=== PATIENT | female | born 1960 | race Caucasian/White ===

== ENCOUNTER → 2020-09-27 15:18 | Outpatient (BNVA) | payer MEDICAID, SELFPAY | PROVIDERS: PCP Internal Medicine; Referring Provider Internal Medicine; Visit Provider Student in an Organized Health Care Education/Training Program | DX: M25.50 Pain in unspecified joint (principal) | CPT/HCPCS: 99204 ==

== ENCOUNTER 2020-09-28 07:27 | Outpatient (REF) | payer MEDICAID, SELFPAY ==
--- NOTE | 2020-09-28 07:51 | XR_ITS ---
EXAMINATION: BILATERAL KNEE. CLINICAL INFORMATION: Bilateral knee pain. COMPARISON: None TECHNIQUE: 4 views of each knee. FINDINGS: RIGHT KNEE: There is mild loss of medial and patellofemoral compartment joint space with periarticular spurring. There are no loose bodies, bony erosive changes or suprapatellar joint effusion. There is small anterior patellar enthesophyte. LEFT KNEE: There is mild loss of medial and patellofemoral compartment joint space without bony erosive changes. No acute fracture or dislocation. There is mild periarticular spurring along the patellofemoral and medial compartments. XR/XR knee RT 4V IMPRESSION: Degenerative osteoarthritic changes medial and patellofemoral compartments both knees with periarticular spurring. No joint effusion is seen.
--- NOTE | 2020-09-28 07:51 | XR_ITS ---
EXAMINATION: BILATERAL HAND X-RAY CLINICAL INFORMATION: Pain COMPARISON: Previous x-ray January 2013 TECHNIQUE: 3 views of each hand FINDINGS: Bone alignment is normal. No fracture or dislocation is seen. There is arthritis at the IP joints with joint space narrowing and osteophyte formation. There are also small osteophytes at the second MCP joints. Joint spaces are otherwise normal. There is a soft tissue calcification or ossification adjacent to the distal ulna probably representing triangular fibrocartilage complex calcification. There is a small 2 mm faint radiopaque density in the soft tissues adjacent to the proximal phalanx of the left third finger. This is unchanged. Soft tissues are otherwise unremarkable. XR/XR hand LT min 3V IMPRESSION: Degenerative arthritis at the IP joints.
--- NOTE | 2020-09-28 07:51 | XR_ITS ---
EXAMINATION: BILATERAL HAND X-RAY CLINICAL INFORMATION: Pain COMPARISON: Previous x-ray January 2013 TECHNIQUE: 3 views of each hand FINDINGS: Bone alignment is normal. No fracture or dislocation is seen. There is arthritis at the IP joints with joint space narrowing and osteophyte formation. There are also small osteophytes at the second MCP joints. Joint spaces are otherwise normal. There is a soft tissue calcification or ossification adjacent to the distal ulna probably representing triangular fibrocartilage complex calcification. There is a small 2 mm faint radiopaque density in the soft tissues adjacent to the proximal phalanx of the left third finger. This is unchanged. Soft tissues are otherwise unremarkable. XR/XR hand RT min 3V IMPRESSION: Degenerative arthritis at the IP joints.
--- NOTE | 2020-09-28 07:51 | XR_ITS ---
EXAMINATION: BILATERAL KNEE. CLINICAL INFORMATION: Bilateral knee pain. COMPARISON: None TECHNIQUE: 4 views of each knee. FINDINGS: RIGHT KNEE: There is mild loss of medial and patellofemoral compartment joint space with periarticular spurring. There are no loose bodies, bony erosive changes or suprapatellar joint effusion. There is small anterior patellar enthesophyte. LEFT KNEE: There is mild loss of medial and patellofemoral compartment joint space without bony erosive changes. No acute fracture or dislocation. There is mild periarticular spurring along the patellofemoral and medial compartments. XR/XR knee LT 4V IMPRESSION: Degenerative osteoarthritic changes medial and patellofemoral compartments both knees with periarticular spurring. No joint effusion is seen.
[2020-09-28 08:06] LABS: MANUAL DIFF FLAG NO
[2020-09-28 08:12] LABS: Basophils Percent Auto 0.5 % (0-2); Eosinophils Absolute Auto 0.1 X10*3/uL (0.0-0.4); Eosinophils Percent Auto 1.4 % (0-4); Hemoglobin 13.1 g/dl (12.0-16.0); Imm Gran Abs Auto 0.02 X10*3/uL (0.00-0.03); Imm Gran Pct Auto 0.3 % (0.0-0.4); Lymphocytes Absolute Auto 1.9 X10*3/uL (1.2-4.9); Lymphocytes Percent Auto 29.4 % (20-40); Mean Corpuscular HGB Conc 31.2 g/dl (31.0-35.0); Mean Corpuscular Hemoglobin 24.9 pg (27.0-33.0); Mean Corpuscular Volume 79.8 fL (80-98); Mean Platelet Volume 9.8 fL (9.4-12.3); Monocytes Absolute Auto 0.5 X10*3/uL (0.1-1.2); Neutrophils Absolute Auto 3.9 X10*3/uL (2.0-8.3); Neutrophils Percent Auto 60.4 % (45-73); Platelet Count 230 X10*3/uL (160-400); Red Blood Count 5.26 X10*6/uL (4.20-5.50); Red Cell Distribution Width 15.4 % (11.0-16.0); White Blood Count 6.4 X10*3/uL (4.8-10.8)
[2020-09-28 08:24] LABS: Alanine Aminotransferase 10 U/L (0-31); Alkaline Phosphatase 86 U/L (39-117); Anion Gap 13 (12-20); Aspartate Amino Transferase 15 U/L (5-31); Bilirubin Total 0.5 mg/dL (0.0-1.0); Blood Urea Nitrogen 18 mg/dL (9-16); Calcium 8.2 mg/dL (8.4-10.2); Carbon Dioxide 26 mmol/L (22-29); Chloride 101 mmol/L (96-108); Estimated Glomerular Filt Rate > 60; Glucose Random 124 mg/dL (60-115); Potassium 4.1 mmol/l (3.3-5.1); Rheumatoid Factor < 15.0 IU/mL (<15.0); Sodium 136 mmol/L (135-145); Total Protein 7.3 g/dL (6.5-8.0)
[2020-09-28 09:04] LABS: Erythrocyte Sedimentation Rate 20 MM/HR (0-20)
[2020-10-01 13:52] LABS: Antibody to SS-A Antigen <1.0 NEG AI (<1.0 NEG); Antibody to SS-B Antigen <1.0 NEG AI (<1.0 NEG)
[2020-10-03 10:56] LABS: Anti Nuclear Antibody Pattern Nuclear, Homogeneous; Anti Nuclear Antibody Screen POSITIVE (NEGATIVE)
[2020-10-03 16:02] LABS: Cyclic Citrullinated Peptide <16 UNITS
[2020-10-04 12:52] LABS: Vitamin D 25-OH, D2 <4 ng/mL; Vitamin D 25-OH, D3 17 ng/mL; Vitamin D 25-OH, Total 17 ng/mL (30-100)
== END 2020-09-28 07:28 | disposition home or self-care (01) ==
LOC: HO.LAB 07:27
PROVIDERS: PCP Internal Medicine; Visit Provider Student in an Organized Health Care Education/Training Program
DX: M25.50 Pain in unspecified joint (principal)
CPT/HCPCS: 36415; 73130; 73564; 80053; 82306; 85025; 85652; 86038; 86039; 86140; 86200; 86235; 86431

== ENCOUNTER 2020-10-13 08:06 | Outpatient (REF) | payer MEDICAID, SELFPAY ==
[2020-10-13 09:06] LABS: Glucose Urine UA NEG (NEG); Leukocyte Esterase Urine NEG (NEG); Nitrite Urine NEG (NEG); Specific Gravity - Urine 1.025 (1.005-1.025); Urine Blood NEG (NEG); Urine Ketones NEG (NEG); Urine Protein NEG (NEG-TRACE)
[2020-10-13 09:08] LABS: Appearance Urine HAZY; Color Urine YELLOW
[2020-10-13 09:20] LABS: Bacteria Urine 2+ /LPF; RBC Urine 0 /HPF (0); Squamous Epithelial Cell Urine 2+ /LPF
[2020-10-14 11:12] LABS: Thyroglobulin Antibodies <1 IU/mL (< or = 1); Thyroid Peroxidase Antibodies <1 IU/mL (<9)
[2020-10-14 11:36] LABS: Complement C3 163 mg/dL (83-193)
[2020-10-14 12:02] LABS: Anti DNA DS Antibody 1 IU/mL; SM/Ribonucleoprotein Ab <1.0 NEG AI (<1.0 NEG); Smith Protein <1.0 NEG AI (<1.0 NEG)
== END 2020-10-13 08:07 | disposition home or self-care (01) ==
LOC: HO.LAB 08:06
PROVIDERS: PCP Internal Medicine; Visit Provider Student in an Organized Health Care Education/Training Program
DX: R76.8 Other specified abnormal immunological findings in serum (principal)
CPT/HCPCS: 36415; 81001; 86160; 86225; 86235; 86376; 86800

== ENCOUNTER → 2020-10-26 09:24 | Outpatient (BNVA) | payer MEDICAID, SELFPAY | PROVIDERS: PCP Internal Medicine; Referring Provider Internal Medicine; Visit Provider Student in an Organized Health Care Education/Training Program | DX: M25.50 Pain in unspecified joint (principal); E55.9 Vitamin D deficiency, unspecified; R76.8 Other specified abnormal immunological findings in serum | CPT/HCPCS: 99212 ==

== ENCOUNTER 2020-12-06 19:56 | Emergency (ER) | payer MEDICAID, SELFPAY ==
--- NOTE | 2020-12-06 | ECG_ITS ---
Test Reason : NAUSEA Blood Pressure : / mmHG Vent. Rate : 067 BPM Atrial Rate : 067 BPM P-R Int : 144 ms QRS Dur : 072 ms QT Int : 416 ms P-R-T Axes : 043 002 -06 degrees QTc Int : 439 ms Sinus rhythm with occasional Premature ventricular complexes Otherwise normal ECG When compared with ECG of 30-JAN-2013 10:31, Premature ventricular complexes are now Present Referred By: Generic ED Physician Electronically Signed By:Cruz Machuca
[2020-12-06 20:03] VITALS: BP 157/66; PULSE 73; RESP 20; TEMP 36.9; O2SAT 97; BMI 42.0
--- NOTE | 2020-12-06 21:30 | XR_ITS ---
EXAMINATION: PORTABLE CHEST 1 VIEW CLINICAL INFORMATION: Chest pressure . COMPARISON: 11/05/2014. TECHNIQUE: Portable frontal view of the chest was obtained. FINDINGS: The lungs are mildly hypoexpanded with chronic appearing reticular markings. No focal infiltrate, effusion, edema, or pneumothorax. Cardiac and mediastinal silhouettes are within normal limits for technique. No acute bony abnormality seen. XR/XR chest 1V IMPRESSION: Hypoexpanded with chronic appearing reticular markings but otherwise no evidence of acute disease compared to 11/05/2014.
--- NOTE | 2020-12-06 21:34 | ED_ITS ---
HPI - General Adult General Chief complaint: General Medical Stated complaint: WEAKNESS,EXP TO COVID Time Seen by Provider: 12/06/20 20:57 Source: patient Mode of arrival: ambulatory History of Present Illness HPI narrative: This is a 60-year-old female with significant past medical history of hypertension who presents with 1 week multiple symptoms such as headache, body aches, 3-4 episodes of nonbloody diarrhea a day but denies any sore throat, cough, shortness of breath. She states she got her flu vaccine last Saturday and has significant COVID-19 exposure from her family. Patient states that she experienced left-sided chest pressure that started this evening at approximately 6:00 p.m. and she states radiates into her back and worsens with deep inspiration and movement. Related Data Home Medications Medication Instructions Recorded Confirmed amlodipine 5 mg tablet 5 mg PO DAILY 09/27/20 atorvastatin 20 mg tablet 20 mg PO DAILY 09/27/20 levothyroxine 137 mcg tablet 137 mcg PO DAILY 09/27/20 lisinopril 20 1 tab PO DAILY 09/27/20 mg-hydrochlorothiazide 25 mg tablet metoprolol tartrate 50 mg tablet 50 mg PO DAILY 09/27/20 Previous Rx's Medication Instructions Recorded cholecalciferol (vitamin D3) 50 50 mcg PO DAILY #90 cap 10/26/20 mcg (2,000 unit) capsule Allergies Allergy/AdvReac Type Severity Reaction Status Date / Time No Known Allergies Allergy Mild N/A Verified 10/26/20 09:34 Review of Systems Review of Systems: Pertinent positives and negatives as stated in HPI 10 point review of systems otherwise negative. [facility] Past Medical History Source: nursing notes reviewed Medical History History of arthritis Hx of adenomatous colonic polyps Hx of essential hypertension Hx of hyperlipidemia Hx of obesity Hx of osteoarthritis Hx of thyroid nodule Surgical History Hx of cholecystectomy S/P thyroidectomy Family History Family History Mother Diabetes Family/Other HTN (hypertension) Social History Social History Alcohol intake: never Smoking Status: Never smoker Use of substances other than those prescribed or required for medical reasons: No Advance Directives: No Advance Directives Information Provided: No Physical Exam Vital Signs: Vital Signs: Last Vital Signs Temp 98.8 F 12/06/20 22:41 Pulse 72 12/06/20 22:41 Resp 16 12/06/20 22:41 BP 137/75 12/06/20 22:41 Pulse Ox 100 12/06/20 22:41 Body Mass Index 42.0 VITAL SIGNS: Reviewed. GENERAL: Well developed, well nourished, in no acute distress. HEAD: Normocephalic/atraumatic, EYES: PERRLA, EOMI intact without pain EARS: Ext canals without abnormality, TMs non-bulging and non-erythematous NOSE: Nares patent bilateral OROPHARYNX: no oral lesions noted, posterior pharynx clear NECK: Supple, no adenopathy LUNGS: Normal breath sounds. No adventitious sounds or accessory muscle use. SpO2<97> CARDIOVASCULAR: Regular rate and rhythm without noted murmurs, no JVD or lower extremity edema. ABDOMEN: Obese, Soft, non-tender, non-distended with bowel sounds. No rigidity. No guarding. No palpable masses or hernias noted NEUROLOGIC: Alert and oriented x 4. Course Course Course Narrative: This 60-year-old female with history and clinical presentation most consistent with likely viral syndrome, will rule out cardiopulmonary etiologies. On review of all investigations there is no evidence of systemic infection or m etabolic derangements, and on chest x-ray there is no evidence of infiltrate, but COVID-19 testing is positive as suspected. Patient has not been tachypneic or hypoxic and is not currently short of breath. Of note EKG and negative high sensitivity troponin. Medical Decision Making Lab Data Result diagrams: 12/06/20 21:48 12/06/20 21:48 Labs: Lab Results 12/06/20 12/06/20 12/06/20 Range/Units 21:45 21:48 21:48 WBC 4.9 (4.8-10.8) X10*3/uL RBC 5.57 H (4.20-5.50) X10*6/uL Hgb 13.9 (12.0-16.0) g/dl Hct 43.5 (37-47) % MCV 78.1 L (80-98) fL MCH 25.0 L (27.0-33.0) pg MCHC 32.0 (31.0-35.0) g/dl RDW 15.0 (11.0-16.0) % Plt Count 174 (160-400) X10*3/uL MPV 10.0 (9.4-12.3) fL Immature Gran % (Auto) 0.2 (0.0-0.4) % Neut % (Auto) 55.9 (45-73) % Lymph % (Auto) 31.5 (20-40) % [place] % (Auto) 11.8 H (2-11) % Eos % (Auto) 0.2 (0-4) % Baso % (Auto) 0.4 (0-2) % Lymph # (Auto) 1.6 (1.2-4.9) X10*3/uL [place] # (Auto) 0.6 (0.1-1.2) X10*3/uL Eos # (Auto) 0.0 (0.0-0.4) X10*3/uL Baso # (Auto) 0.0 (0.0-0.2) X10*3/uL Abs Immat Gran (auto) 0.01 (0.00-0.03) X10*3/uL Absolute Neuts (auto) 2.8 (2.0-8.3) X10*3/uL Absolute Nucleated RBC 0.000 (0.0-0.012) X10*3/uL Nucleated RBC % (auto) 0.0 (0.0-0.2) /100WBC Sodium 140 (135-145) mmol/L Potassium 3.7 (3.3-5.1) mmol/l Chloride 104 (96-108) mmol/L Carbon Dioxide 23 (22-29) mmol/L Anion Gap 17 (12-20) BUN 13 (9-16) mg/dL Creatinine 0.83 (0.5-1.4) mg/dL Estim Creat Clear Calc 85.7 Estimated GFR > 60 Random Glucose 109 (60-115) mg/dL Calcium 7.6 L D (8.4-10.2) mg/dL Total Bilirubin 0.3 (0.0-1.0) mg/dL AST 21 (5-31) U/L ALT 16 (0-31) U/L Alkaline Phosphatase 80 (39-117) U/L Troponin I High Sens (<3.5-17.0) ng/L Total Protein 7.1 (6.5-8.0) g/dL Albumin 4.0 (3.5-5.0) g/dL COVID-19 ([facility]) Positive A (Negative) COVID-19 Clin Com See Note 12/06/20 Range/Units 21:48 WBC (4.8-10.8) X10*3/uL RBC (4.20-5.50) X10*6/uL Hgb (12.0-16.0) g/dl Hct (37-47) % MCV (80-98) fL MCH (27.0-33.0) pg MCHC (31.0-35.0) g/dl RDW (11.0-16.0) % Plt Count (160-400) X10*3/uL MPV (9.4-12.3) fL Immature Gran % (Auto) (0.0-0.4) % Neut % (Auto) (45-73) % Lymph % (Auto) (20-40) % [place] % (Auto) (2-11) % Eos % (Auto) (0-4) % Baso % (Auto) (0-2) % Lymph # (Auto) (1.2-4.9) X10*3/uL [place] # (Auto) (0.1-1.2) X10*3/uL Eos # (Auto) (0.0-0.4) X10*3/uL Baso # (Auto) (0.0-0.2) X10*3/uL Abs Immat Gran (auto) (0.00-0.03) X10*3/uL Absolute Neuts (auto) (2.0-8.3) X10*3/uL Absolute Nucleated RBC (0.0-0.012) X10*3/uL Nucleated RBC % (auto) (0.0-0.2) /100WBC Sodium (135-145) mmol/L Potassium (3.3-5.1) mmol/l Chloride (96-108) mmol/L Carbon Dioxide (22-29) mmol/L Anion Gap (12-20) BUN (9-16) mg/dL Creatinine (0.5-1.4) mg/dL Estim Creat Clear Calc Estimated GFR Random Glucose (60-115) mg/dL Calcium (8.4-10.2) mg/dL Total Bilirubin (0.0-1.0) mg/dL AST (5-31) U/L ALT (0-31) U/L Alkaline Phosphatase (39-117) U/L Troponin I High Sens 3.5 (<3.5-17.0) ng/L Total Protein (6.5-8.0) g/dL Albumin (3.5-5.0) g/dL COVID-19 ([facility]) (Negative) COVID-19 Clin Com ECG Data Attestation: I personally reviewed and interpreted this ECG as follows: Prior ECG tracings: available for review (01/30/2013 no acute changes on comparison) Interpretation: Sinus rhythm, HR-67, no evidence of acute ischemia, NV/QRS/QTC are within normal limits. Discharge Plan Discharge Clinical Impression: Close exposure to COVID-19 virus, COVID-19 virus infection Patient Disposition: Home, Self-Care Instructions: COVID-19 (Coronavirus Disease 2019) (ED) Prescriptions: No Action metoprolol tartrate 50 mg tablet 50 mg PO DAILY RF: 0 atorvastatin 20 mg tablet 20 mg PO DAILY RF: 0 lisinopril-hydrochlorothiazide 20-25 mg tablet 1 tab PO DAILY RF: 0 amlodipine 5 mg tablet 5 mg PO DAILY RF: 0 levothyroxine 137 mcg tablet 137 mcg PO DAILY RF: 0 cholecalciferol (vitamin D3) 50 mcg (2,000 unit) capsule 50 mcg PO DAILY Qty: 90 RF: 0 Referrals: Physician,Unknown [Primary Care Provider] - 2 days Print Language: Gibraltarian
[2020-12-06 21:55] LABS: Basophils Percent Auto 0.4 % (0-2); Eosinophils Percent Auto 0.2 % (0-4); Hematocrit 43.5 % (37-47); Hemoglobin 13.9 g/dl (12.0-16.0); Imm Gran Abs Auto 0.01 X10*3/uL (0.00-0.03); Imm Gran Pct Auto 0.2 % (0.0-0.4); Lymphocytes Absolute Auto 1.6 X10*3/uL (1.2-4.9); Lymphocytes Percent Auto 31.5 % (20-40); MANUAL DIFF FLAG NO; Mean Corpuscular Volume 78.1 fL (80-98); Monocytes Absolute Auto 0.6 X10*3/uL (0.1-1.2); Monocytes Percent Auto 11.8 % (2-11); Neutrophils Absolute Auto 2.8 X10*3/uL (2.0-8.3); Neutrophils Percent Auto 55.9 % (45-73); Platelet Count 174 X10*3/uL (160-400); Red Blood Count 5.57 X10*6/uL (4.20-5.50); White Blood Count 4.9 X10*3/uL (4.8-10.8)
[2020-12-06 22:09] LABS: COVID-19 Test Positive (Negative)
[2020-12-06 22:21] LABS: Alanine Aminotransferase 16 U/L (0-31); Alkaline Phosphatase 80 U/L (39-117); Anion Gap 17 (12-20); Aspartate Amino Transferase 21 U/L (5-31); Bilirubin Total 0.3 mg/dL (0.0-1.0); Blood Urea Nitrogen 13 mg/dL (9-16); Calcium 7.6 mg/dL (8.4-10.2); Carbon Dioxide 23 mmol/L (22-29); Chloride 104 mmol/L (96-108); Creatinine Clr Calc Pharmacy 85.7; Estimated Glomerular Filt Rate > 60; Glucose Random 109 mg/dL (60-115); Potassium 3.7 mmol/l (3.3-5.1); Sodium 140 mmol/L (135-145); Total Protein 7.1 g/dL (6.5-8.0)
[2020-12-06 22:27] LABS: Troponin-I High Sensitivity 3.5 ng/L (<3.5-17.0)
[2020-12-06 22:41] VITALS: BP 137/75; PULSE 72; RESP 16; TEMP 37.1; O2SAT 100
== END 2020-12-06 22:57 | disposition home or self-care (01) ==
PROVIDERS: Emergency Provider Student in an Organized Health Care Education/Training Program
DX: U07.1 COVID-19 (principal); R07.89 Other chest pain; I10 Essential (primary) hypertension
CPT/HCPCS: 36415; 71045; 80053; 84484; 85025; 87635; 93005; 99283; 99284

== ENCOUNTER 2021-02-09 15:34 | Outpatient (REF) | payer MEDICAID, SELFPAY ==
--- NOTE | ~2021-02-09 | US_ITS ---
EXAMINATION: US VENOUS ULTRASOUND WITH DOPPLER LOWER EXTREMITY, BILATERAL CLINICAL INFORMATION: Swelling evaluate for DVT. COMPARISON: Bilateral venous study reflux exam December 2015. TECHNIQUE: Ultrasound of the deep veins is performed from the hip to the calf with compression sonography and color and pulse Doppler assessment. Spectral analysis with color-flow imaging is performed. FINDINGS: RIGHT: There is normal venous compression and respiratory variation and augmented flow. The visualized common femoral vein, superficial femoral vein, profunda femoral vein, popliteal vein, and the trifurcation region shows no evidence of deep venous thrombosis. There is no significant popliteal fossa cyst. LEFT: There is normal venous compression and respiratory variation and augmented flow. The visualized common femoral vein, superficial femoral vein, profunda femoral vein, popliteal vein, and the trifurcation region shows no evidence of deep venous thrombosis. There is no significant popliteal fossa cyst. If the patient's symptoms persist, followup ultrasound in 5 days 7 days might be of value to exclude proximal propagation from a non-visualized calf vein. US/US venous duplex LE BI IMPRESSION: No DVT demonstrated in the right and left lower extremity.
== END 2021-02-09 15:35 | disposition home or self-care (01) ==
LOC: HO.US 15:34
PROVIDERS: PCP Internal Medicine; Visit Provider Family Medicine
DX: M79.89 Other specified soft tissue disorders (principal)
CPT/HCPCS: 93970

== ENCOUNTER 2021-06-16 16:39 | Emergency (ER) | payer MEDICAID, SELFPAY ==
--- NOTE | ~2021-06-16 | XR_ITS ---
EXAMINATION: XR CHEST CLINICAL INFORMATION: Leg swelling. COMPARISON: None TECHNIQUE: Frontal view of the chest was obtained. FINDINGS: The lungs are well-expanded and clear acute pneumonic process. Heart size and pulmonary vascularity is normal. There is moderate spondylosis dorsal spine. No lytic process. XR/XR chest 1V IMPRESSION: Unremarkable chest exam
--- NOTE | ~2021-06-16 | US_ITS ---
EXAMINATION: US VENOUS ULTRASOUND WITH DOPPLER LOWER EXTREMITY, BILATERAL CLINICAL INFORMATION: Swelling with pain evaluate for deep vein thrombosis. Elevated d-dimer. COMPARISON: Prior ultrasound of January 2021 TECHNIQUE: Ultrasound of the deep veins is performed from the hip to the calf without compression sonography but with color and pulse Doppler assessment. Spectral analysis with color-flow imaging is performed. FINDINGS: RIGHT: The visualized common femoral vein, superficial femoral vein, profunda femoral vein, popliteal vein, and the trifurcation region shows no evidence of deep venous thrombosis. However the patient could not tolerate compressions limiting the exam. There is no significant popliteal fossa cyst. LEFT:The visualized common femoral vein, superficial femoral vein, profunda femoral vein, popliteal vein, and the trifurcation region shows no evidence of deep venous thrombosis. However the patient could not tolerate compressions limiting the exam. There is no significant popliteal fossa cyst. . There is no significant popliteal fossa cyst. If the patient's symptoms persist, followup ultrasound in 5 days 7 days might be of value to exclude proximal propagation from a non-visualized calf vein. US/US venous duplex LE IMPRESSION: This exam is limited as the patient could not tolerate the compression portion of the exam. No evidence for visible thrombus. Recommend repeat examination when patient able to tolerate compression portion of the exam.
[2021-06-16 17:18] VITALS: BP 147/77; PULSE 67; RESP 20; TEMP 36.7; O2SAT 96; BMI 42.5
--- NOTE | 2021-06-16 17:25 | ECG_ITS ---
Test Reason : LEG SWELLING Blood Pressure : / mmHG Vent. Rate : 063 BPM Atrial Rate : 063 BPM P-R Int : 152 ms QRS Dur : 074 ms QT Int : 420 ms P-R-T Axes : 039 015 005 degrees QTc Int : 429 ms Normal sinus rhythm Normal ECG When compared with ECG of 06-DEC-2020 20:11, Premature ventricular complexes are no longer Present Referred By: Generic ED Physician Electronically Signed By:Cruz Machuca
--- NOTE | 2021-06-16 18:36 | ED.EXTPRO ---
HPI - Extremity Problem General Chief complaint: Extremity Problem Stated complaint: swollen legs Time Seen by Provider: 06/16/21 18:36 Source: patient and family Mode of arrival: ambulatory Limitations: no limitations History of Present Illness HPI Narrative: Patient been noticing increased leg swelling for few months getting worse gained about 20 lb in last few months took water pill for few days in 02/19 since she stopped the pill she been continues to be gaining weight and leg swelling no shortness of breath no chest pain no liver problems Related Data Home Medications Medication Instructions Recorded Confirmed amlodipine 5 mg tablet 5 mg PO DAILY 09/27/20 atorvastatin 20 mg tablet 20 mg PO DAILY 09/27/20 levothyroxine 137 mcg tablet 137 mcg PO DAILY 09/27/20 lisinopril 20 1 tab PO DAILY 09/27/20 mg-hydrochlorothiazide 25 mg tablet metoprolol tartrate 50 mg tablet 50 mg PO DAILY 09/27/20 Previous Rx's Medication Instructions Recorded cholecalciferol (vitamin D3) 50 50 mcg PO DAILY #90 cap 01/17/21 mcg (2,000 unit) capsule furosemide [Lasix] 20 mg PO QAM #30 tab 06/16/21 Allergies Allergy/AdvReac Type Severity Reaction Status Date / Time No Known Allergies Allergy Mild N/A Verified 06/16/21 17:17 Review of Systems Review of Systems: Yes all other systems are reviewed and are negative [facility] Past Medical History Medical History History of arthritis Hx of adenomatous colonic polyps Hx of essential hypertension Hx of hyperlipidemia Hx of obesity Hx of osteoarthritis Hx of thyroid nodule Surgical History Hx of cholecystectomy S/P thyroidectomy Family History Family History Mother Diabetes Family/Other HTN (hypertension) Social History Social History Alcohol intake: never Advance Directives: No Advance Directives Information Provided: Yes Patient : No Physical Exam Vital Signs: Vital Signs: Last Vital Signs Temp 97.7 F 06/16/21 21:32 Pulse 61 06/16/21 21:32 Resp 18 06/16/21 21:32 BP 129/66 06/16/21 21:32 Pulse Ox 98 07/16/21 21:32 Body Mass Index 42.5 Appearance: Alert. Oriented X3. No acute distress. Eyes: PERRLA, No Nystagmus ENT: Pharynx normal. Oral Mucosa moist Neck: Normal inspection. Neck supple. CVS: Normal heart rate and rhythm. Pulses normal. Respiratory: No respiratory distress. Equal air entry bilateral, no wheezing/rales/rhonchi Abdomen: Soft and nontender. Bowel sounds are present, no mass palpable, no CVA tenderness Skin: Skin warm and dry. Normal skin color. Normal skin turgor. Extremities: 3++ lower extremity edema. No calf tenderness Neuro: Oriented X 3. No motor deficit. MDM - Extremity (Nontraumatic) MDM Narrative Medical decision making narrative: Patient with dependent leg edema normal BNP normal venous Doppler will discharge patient home on furosemide 20 mg daily advised to follow with PCP Lab Data Attestation: I reviewed the patient's lab results. Result diagrams: 06/16/21 19:16 06/16/21 19:16 Labs: Lab Results 06/16/21 06/16/21 06/16/21 Range/Units 19:16 19:16 19:16 WBC 8.0 (4.8-10.8) X10*3/uL RBC 4.89 (4.20-5.50) X10*6/uL Hgb 12.5 (12.0-16.0) g/dl Hct 38.5 (37-47) % MCV 78.7 L (80-98) fL MCH 25.6 L (27.0-33.0) pg MCHC 32.5 (31.0-35.0) g/dl RDW 15.3 (11.0-16.0) % Plt Count 250 D (160-400) X10*3/uL MPV 9.8 (9.4-12.3) fL Immature Gran % (Auto) 0.1 (0.0-0.4) % Neut % (Auto) 62.6 (45-73) % Lymph % (Auto) 25.7 (20-40) % [place] % (Auto) 9.8 (2-11) % Eos % (Auto) 1.3 (0-4) % Baso % (Auto) 0.5 (0-2) % Lymph # (Auto) 2.1 (1.2-4.9) X10*3/uL [place] # (Auto) 0.8 (0.1-1.2) X10*3/uL Eos # (Auto) 0.1 (0.0-0.4) X10*3/uL Baso # (Auto) 0.0 (0.0-0.2) X10*3/uL Abs Immat Gran (auto) 0.01 (0.00-0.03) X10*3/uL Absolute Neuts (auto) 5.0 (2.0-8.3) X10*3/uL Absolute Nucleated RBC 0.000 (0.0-0.012) X10*3/uL Nucleated RBC % (auto) 0.0 (0.0-0.2) /100WBC D-Dimer NG/ML Sodium 141 (135-145) mmol/L Potassium 4.7 (3.3-5.1) mmol/L Chloride 103 (96-108) mmol/L Carbon Dioxide 32 H (22-29) mmol/L Anion Gap 11 L (12-20) BUN 17 H (9-16) mg/dL Creatinine 1.02 (0.5-1.4) mg/dL Estim Creat Clear Calc 70.2 Estimated GFR 55 Random Glucose 94 (60-115) mg/dL Calcium 8.7 D (8.4-10.2) mg/dL Troponin I High Sens < 3.5 (<3.5-17.0) ng/L B-Natriuretic Peptide (<100) pg/mL 06/16/21 06/16/21 Range/Units 19:16 19:16 WBC (4.8-10.8) X10*3/uL RBC (4.20-5.50) X10*6/uL Hgb (12.0-16.0) g/dl Hct (37-47) % MCV (80-98) fL MCH (27.0-33.0) pg MCHC (31.0-35.0) g/dl RDW (11.0-16.0) % Plt Count (160-400) X10*3/uL MPV (9.4-12.3) fL Immature Gran % (Auto) (0.0-0.4) % Neut % (Auto) (45-73) % Lymph % (Auto) (20-40) % [place] % (Auto) (2-11) % Eos % (Auto) (0-4) % Baso % (Auto) (0-2) % Lymph # (Auto) (1.2-4.9) X10*3/uL [place] # (Auto) (0.1-1.2) X10*3/uL Eos # (Auto) (0.0-0.4) X10*3/uL Baso # (Auto) (0.0-0.2) X10*3/uL Abs Immat Gran (auto) (0.00-0.03) X10*3/uL Absolute Neuts (auto) (2.0-8.3) X10*3/uL Absolute Nucleated RBC (0.0-0.012) X10*3/uL Nucleated RBC % (auto) (0.0-0.2) /100WBC D-Dimer 272 NG/ML Sodium (135-145) mmol/L Potassium (3.3-5.1) mmol/L Chloride (96-108) mmol/L Carbon Dioxide (22-29) mmol/L Anion Gap (12-20) BUN (9-16) mg/dL Creatinine (0.5-1.4) mg/dL Estim Creat Clear Calc Estimated GFR Random Glucose (60-115) mg/dL Calcium (8.4-10.2) mg/dL Troponin I High Sens (<3.5-17.0) ng/L B-Natriuretic Peptide 79 (<100) pg/mL Discharge Plan Discharge Clinical Impression: Pedal edema Patient Disposition: Home, Self-Care Instructions: Leg Edema (ED) Additional Instructions: Keep legs elevated Take water pill daily for increased swelling and follow-up with PCP Prescriptions: New furosemide [Lasix] 20 mg tablet 20 mg PO QAM Qty: 30 RF: 0 No Action cholecalciferol (vitamin D3) 50 mcg (2,000 unit) capsule 50 mcg PO DAILY Qty: 90 RF: 1 metoprolol tartrate 50 mg tablet 50 mg PO DAILY RF: 0 atorvastatin 20 mg tablet 20 mg PO DAILY RF: 0 lisinopril-hydrochlorothiazide 20-25 mg tablet 1 tab PO DAILY RF: 0 amlodipine 5 mg tablet 5 mg PO DAILY RF: 0 levothyroxine 137 mcg tablet 137 mcg PO DAILY RF: 0
[2021-06-16 19:19] VITALS: BP 141/72; PULSE 59; RESP 18; TEMP 36.7; O2SAT 99
[2021-06-16 19:32] LABS: MANUAL DIFF FLAG NO
[2021-06-16 19:33] LABS: Basophils Percent Auto 0.5 % (0-2); Eosinophils Absolute Auto 0.1 X10*3/uL (0.0-0.4); Eosinophils Percent Auto 1.3 % (0-4); Hematocrit 38.5 % (37-47); Hemoglobin 12.5 g/dl (12.0-16.0); Imm Gran Abs Auto 0.01 X10*3/uL (0.00-0.03); Imm Gran Pct Auto 0.1 % (0.0-0.4); Lymphocytes Absolute Auto 2.1 X10*3/uL (1.2-4.9); Lymphocytes Percent Auto 25.7 % (20-40); Mean Corpuscular HGB Conc 32.5 g/dl (31.0-35.0); Mean Corpuscular Hemoglobin 25.6 pg (27.0-33.0); Mean Corpuscular Volume 78.7 fL (80-98); Mean Platelet Volume 9.8 fL (9.4-12.3); Monocytes Absolute Auto 0.8 X10*3/uL (0.1-1.2); Monocytes Percent Auto 9.8 % (2-11); Neutrophils Percent Auto 62.6 % (45-73); Platelet Count 250 X10*3/uL (160-400); Red Blood Count 4.89 X10*6/uL (4.20-5.50); Red Cell Distribution Width 15.3 % (11.0-16.0)
[2021-06-16 19:55] LABS: Anion Gap 11 (12-20); Blood Urea Nitrogen 17 mg/dL (9-16); Calcium 8.7 mg/dL (8.4-10.2); Carbon Dioxide 32 mmol/L (22-29); Chloride 103 mmol/L (96-108); Creatinine Clr Calc Pharmacy 70.2; Estimated Glomerular Filt Rate 55; Glucose Random 94 mg/dL (60-115); Potassium 4.7 mmol/L (3.3-5.1); Sodium 141 mmol/L (135-145)
[2021-06-16 19:57] LABS: D Dimer 272 NG/ML
[2021-06-16 19:59] LABS: B Type Natriuretic Peptide 79 pg/mL (<100); Troponin-I High Sensitivity < 3.5 ng/L (<3.5-17.0)
[2021-06-16 21:32] VITALS: BP 129/66; PULSE 61; RESP 18; TEMP 36.5; O2SAT 98
== END 2021-06-16 21:57 | disposition home or self-care (01) ==
PROVIDERS: Emergency Provider Internal Medicine; PCP Internal Medicine
DX: R60.0 Localized edema (principal)
CPT/HCPCS: 36415; 71045; 80048; 83880; 84484; 85025; 85379; 93005; 93970; 99284

== ENCOUNTER → 2021-07-06 11:16 | Outpatient (BNVA) | payer MEDICAID, SELFPAY | PROVIDERS: PCP Internal Medicine; Visit Provider Surgery Vascular Surgery | DX: I83.11 Varicose veins of right lower extremity with inflammation (principal) | CPT/HCPCS: 99202 ==

== ENCOUNTER → 2021-08-21 07:53 | Outpatient (REF) | payer MEDICAID, SELFPAY ==
--- NOTE | 2021-08-21 07:58 | CA_ITS ---
Transthoracic Echocardiogram Patient (Last, First, Middle): Alejandra Lindquist Z Gender: Female Date of : 1960 Age: 61 Procedure Date: 08/21/2021 Procedure Type: Transthoracic Echocardiogram Location: OP Height: 162.56 cm Weight: 116.58 kg BSA: 2.18 m2 Heart Rate: bpm BP: 138 / 86 mmHg Driller Machine: [id number] Referring MD: Daphne Garrido MD Supervisor Phosphoric Acid: Benson Thao MD Symptoms: SOB Study Quality: Technically Difficult ECG Rhythm: Sinus Conclusions: - 1. Technically limited study despite use of definity contrast 2. Hyperdynamic LV systolic function with LVEF of 70% with suggestion of elevated left ventricular end-diastolic pressure and pseudonormal filling pattern 3. Moderately dilated left atrium 4. Limited visualization of cardiac valves with normal cardiac valvular Doppler 5. Normal RV systolic pressure Findings Procedure Information Contrast agent, definity, is being given per protocol without apparent complications. Left Ventricle Normal left ventricular cavity size. There is normal left ventricular wall thickness. The left ventricular systolic function is hyperdynamic. The visually estimated ejection fraction is >70%. Spectral Doppler is indicative of a pseudonormal filling pattern. Elevated left ventricular end diastolic pressure. E/E prime ratio is between 8 and 15 consistent with indeterminate filling pressures. Right Ventricle The right ventricle was not well visualized. Atria The left atrium is moderately dilated. Interatrial shunt cannot be excluded. The right atrium was not well visualized. Aortic Valve The aortic valve was not well visualized. There is no aortic valve stenosis. There is no aortic valve regurgitation. Mitral Valve The mitral valve was not well visualized. There is trace mitral valve regurgitation. There is no mitral valve stenosis. Pulmonic Valve The pulmonic valve was not well visualized. Tricuspid Valve The tricuspid valve was not well visualized. There is trace tricuspid valve regurgitation. The right ventricular systolic pressure is normal. The right ventricular systolic pressure is 32 mmHg. There is no evidence of pulmonary hypertension. Great Vessels All visible segments of the aorta are normal in size. The pulmonary artery was not well visualized. Venous The inferior vena cava is mildly dilated. Pericardium/Pleural The pericardium was not well visualized. Prior Study Comparison No prior study available for comparison. Measurements 2D Linear Measurements IVSd: 1.12 0.6-0.9/0.6-1.0 cm LVIDd: 4.54 3.9-5.3/4.2-5.9 cm LVIDd Index: 0.38 2.4-3.2/2.2-3.1 cm/m2 LVIDs: 3.39 2.0-3.6 cm LVPWd: 1.19 0.7-1.1 cm Ao Root: 2.40 2.1-3.5 cm LA Diam: 3.70 2.7-3.8/3.0-4.0 cm LAIDs Index: 0.31 1.5-2.3 cm/m2 LV Mass: 236.96 67-162/88-224 g LV Mass Index: 19.97 43-95/49-115 g/m2 LVOT Diam: 2.00 3.0+(-)1.3 cm 2D Systolic Function EF 4C: 81.10 >55% EF 2C: 70.60 >55% EF BiP: 77.00 >55% Mitral Valve MV Pk E: 1.17 MV PK A: 1.01 MV Decel Time: 183.00 E/A: 1.20 E'Lateral: 8.59 E'Medial: 7.83 E/E' Med: 14.90 E/E' Lat: 13.60 PHT: 54.00 MVA PHT: 4.07 Decel Chase: 6.39 Aortic Valve AoV Pk Rajendra: 1.68 AoV Pk Grad: 11.00 LVOT LVOT Pk Rajendra: 1.23 LVOT Mn Rajendra: 0.87 LVOT VTI: 0.33 LVOT Pk Grad: 6.00 LVOT Mn Grad: 3.00 LVOT Diam: 2.00 LVOT Area: 3.14 Diastolic Function MV Pk E: 1.17 MV Pk A: 1.01 E/A: 1.20 E'Medial: 7.83 E/E' Med: 14.90 E' Laterial: 8.59 E/E' Lat: 13.60 Right Ventricle TAPSE (mm): 2.14 Tricuspid Valve TR Pk Rajendra: 2.44 TR Pk Grad: 24.00 RA Press: 8.00 RVSP: 32.00 Great Vessels Aorta Ao Root-2D: 2.40 2.0-3.7 cm Ao Asc: 3.20 2.1-3.4 cm Updated in Other Vendor System with Status of Final Benson Thao MD electronically signed on 08/21/2021 4:18:49 PM with status of Final
== END ==
LOC: HO.CARD 07:53
PROVIDERS: Visit Provider Internal Medicine
DX: R06.02 Shortness of breath (principal)
CPT/HCPCS: 93306; Q9957

== ENCOUNTER 2021-08-22 07:40 | Outpatient (REF) | payer MEDICAID, SELFPAY ==
--- NOTE | ~2021-08-22 | US_ITS ---
EXAMINATION: RIGHT and LEFT LOWER EXTREMITY VENOUS ULTRASOUND (Reflux Exam) CLINICAL INDICATION: leg pain and varicose veins. COMPARISON: Previous exam June 2021 TECHNIQUE: Color flow triplex imaging and compression Doppler was performed to evaluate both the deep and the superficial systems bilaterally. To evaluate the superficial system, the examination was performed in the upright position. Color-flow Doppler ultrasound and compression ultrasound were utilized. In addition, maneuvers were utilized to demonstrate reflux. FINDINGS: 1. DEEP VENOUS ULTRASOUND OF THE RIGHT LOWER EXTREMITY: Respiratory variation, normal compression and augmented flow are noted in the right common femoral vein as well as the right popliteal vein and there is no evidence of deep venous thrombosis at these locations. There is deep venous reflux measuring 0.6 seconds in the common femoral vein, 2.4 seconds in the mid femoral vein in 2.5 seconds in the popliteal vein. There is no evidence of a Amos's cyst. 2. SUPERFICIAL ULTRASOUND WITH DOPPLER OF RIGHT LOWER EXTREMITY: The right great saphenous vein at the saphenofemoral junction measures 6 mm, at the mid thigh not seen, [id number] not seen, pique-qcd-[id number] 4 mm, at mid calf 2 mm and at the ankle measures 2 mm. There is 2.4 seconds right greater saphenous vein reflux below the knee. The right small saphenous vein measures 1-3 mm and shows no reflux. There is a varicosity in the mid thigh that measures 3 mm and demonstrates 1.6 seconds reflux. There is a product distribution specialist in the calf that measures 3 mm and does not demonstrate reflux. There is a thrombosed varicosity in the proximal calf. 3. DEEP VENOUS ULTRASOUND OF THE LEFT LOWER EXTREMITY: Respiratory variation, normal compression and augmented flow are noted in the left common femoral vein as well as the left popliteal vein and there is no evidence of deep venous thrombosis at these locations. There is no evidence of reflux in the deep system in either the common femoral vein or the popliteal vein. . There is no evidence of a Amos's cyst. 4. SUPERFICIAL ULTRASOUND WITH DOPPLER OF LEFT LOWER EXTREMITY: Left great saphenous vein at the saphenofemoral junction measures 6 mm, at the mid thigh 3 mm, nxcac-ytv-gvur 4 mm, kljsg-ruz-vjmt 2 mm, at mid calf 1 mm and at the ankle measures 1 mm. There is left greater saphenous vein reflux measuring 2.7 cm above the knee, greater than 3.3 seconds at the knee and 2.9 seconds below the mean. The left small saphenous vein measures 1-3 mm and shows no reflux. There is a varicosity in the proximal thigh that measures 4 mm and does not demonstrate reflux. US/US venous duplex LE BI IMPRESSION: Right: No evidence of DVT. Deep venous reflux in the common femoral, femoral and popliteal veins. Right greater saphenous vein reflux below the knee. Reflux in a varicosity in the mid thigh. Left: No evidence of DVT or deep venous reflux. Left greater saphenous vein reflux, maximum at the knee.
== END 2021-08-22 07:41 | disposition home or self-care (01) ==
LOC: HO.US 07:40
PROVIDERS: PCP Internal Medicine; Visit Provider Surgery Vascular Surgery
DX: I83.893 Varicose veins of bilateral lower extremities with other complications (principal); I83.11 Varicose veins of right lower extremity with inflammation
CPT/HCPCS: 93970

== ENCOUNTER → 2021-08-24 08:47 | Outpatient (BNVA) | payer MEDICAID, SELFPAY | PROVIDERS: PCP Internal Medicine; Visit Provider Surgery Vascular Surgery | DX: I83.12 Varicose veins of left lower extremity with inflammation (principal) | CPT/HCPCS: 99212 ==

== ENCOUNTER → 2021-09-08 08:25 | Outpatient (BNVA) | payer MEDICAID, SELFPAY | PROVIDERS: PCP Internal Medicine; Referring Provider Internal Medicine; Visit Provider Surgery Vascular Surgery | DX: I83.12 Varicose veins of left lower extremity with inflammation (principal) | CPT/HCPCS: 36482 ==

== ENCOUNTER 2021-09-12 14:57 | Outpatient (REF) | payer MEDICAID, SELFPAY ==
--- NOTE | ~2021-09-12 | US_ITS ---
EXAMINATION: US VENOUS ULTRASOUND WITH DOPPLER LOWER EXTREMITY, LEFT CLINICAL INFORMATION: Status post left greater saphenous VenaSeal. COMPARISON: None TECHNIQUE: Ultrasound of the deep veins is performed from the hip to the calf with compression sonography and color and pulse Doppler assessment. Spectral analysis with color-flow imaging is performed. FINDINGS: There is normal venous compression and respiratory variation and augmented flow. The visualized common femoral vein, superficial femoral vein, profunda femoral vein, popliteal vein, and the trifurcation region shows no evidence of deep venous thrombosis. There is no significant popliteal fossa cyst. There is a VenaSeal/plug 2.3 cm in the greater saphenous vein approximately 2.3 cm from the confluence. If the patient's symptoms persist, followup ultrasound in 5 days 7 days might be of value to exclude proximal propagation from a non-visualized calf vein. US/US venous duplex LE IMPRESSION: No DVT demonstrated in the left lower extremity. There is VenaSeal in the greater saphenous vein approximately 2.3 cm from the confluence.
== END 2021-09-12 14:58 | disposition home or self-care (01) ==
LOC: HO.US 14:57
PROVIDERS: PCP Internal Medicine; Visit Provider Surgery Vascular Surgery
DX: M79.605 Pain in left leg (principal); Z98.890 Other specified postprocedural states
CPT/HCPCS: 93971

== ENCOUNTER 2021-09-19 10:17 | Outpatient (REF) | payer MEDICAID, SELFPAY ==
--- NOTE | ~2021-09-19 | MM_ITS ---
EXAMINATION: MM SCREENING DIGITAL BREAST TOMOSYNTHESIS, BILATERAL CLINICAL INFORMATION: Screening. Asymptomatic. The lifetime risk of breast cancer based on the Tyrer-Cuzick Model is 5%. COMPARISON: Mammography: 06/16/2020, 06/11/2019, 06/05/2018 TECHNIQUE: Digital breast tomosynthesis is performed in both the craniocaudal and mediolateral oblique views along with computer-aided detection (CAD). Synthesized 2D images are generated from the tomosynthesis. Additional left cleavage view is provided. FINDINGS: There are scattered areas of fibroglandular density (ACR BI-RADS breast composition Category b). There are no significant masses, abnormal calcifications, or other abnormalities. Parenchymal pattern is similar to prior exams. There are intramammary nodes again seen upper outer left breast and posterior upper right breast. Some regional ductal secretory calcifications again noted on the right. No significant changes. MM/MM tomosynthesis screening BI IMPRESSION: No mammographic evidence of malignancy. ASSESSMENT: BI-RADS 2: Benign RECOMMENDATION: Routine annual mammography screening. This patient's information was entered into a reminder system with a target due date for their next mammogram.
== END 2021-09-19 10:18 | disposition home or self-care (01) ==
LOC: HO.MAMMO 10:17
PROVIDERS: Visit Provider Internal Medicine
DX: Z12.31 Encounter for screening mammogram for malignant neoplasm of breast (principal)
CPT/HCPCS: 77063; 77067

== ENCOUNTER → 2021-09-21 08:42 | Outpatient (BNVA) | payer MEDICAID, SELFPAY | PROVIDERS: PCP Internal Medicine; Visit Provider Surgery Vascular Surgery | DX: I83.12 Varicose veins of left lower extremity with inflammation (principal) | CPT/HCPCS: 99212 ==

== ENCOUNTER → 2021-10-02 07:48 | Outpatient (REF) | payer MEDICAID, SELFPAY ==
--- NOTE | ~2021-10-02 | NM_ITS ---
EXERCISE MYOCARDIAL PERFUSION STUDY INDICATION: Shortness of breath TECHNIQUE: The patient was brought in for an exercise perfusion study on 10/02/2021. Patient performed exercise as per Caio protocol and was injected 45 mCi of sestamibi once target heart rate was achieved. Images were obtained using the SPECT gamma camera interlaced with the gating device. Images were obtained in supine position. Resting perfusion study was performed on 10/03/2021. Patient was administered 45 mCi of sestamibi intravenously at rest. Images were then obtained in supine position. Total DLP 185mGy-cm. Images were processed with the software and compared side to side in short axis, horizontal long axis and vertical long axis views. FINDINGS: Raw images were reviewed. The stress perfusion study showed no significant perfusion abnormality. Both uncorrected as well as CT attenuation corrected images were reviewed. The gated study shows normal LV systolic function with calculated LVEF of 55%. LV cavity is normal in size. The gated study shows normal wall thickening and contraction of segments. Resting study shows no significant perfusion abnormality. Gating at rest reveals normal wall motion with ejection fraction at 56%. The findings are consistent with no reversible or fixed perfusion abnormality. NM/NM eden perf SPECT rest & str IMPRESSION: 1. Myocardial perfusion imaging study shows normal myocardial perfusion. 2. Gated LVEF is 55% during stress and 56% during rest. 3. Transient ischemic dilatation not present. EKG component of the test reported separately.
--- NOTE | 2021-10-02 07:51 | CA_ITS ---
Acquisition Time: 2021-10-02 08:11:59 Total Exercise Time: 00:05:56 Test Indications: SOB Medications: SEE CHART Protocol: THOMAS Max HR: 153 BPM 97% of Pred: 157 BPM Max BP: 152/080 mmHG Max Work Load: 4.6 METS Exercise stress test with exercise 5 min 56 sec of Thomas stage 1 ( stage held due to inability to walk at faster pace) achieving 97% MPHR, 4.5 METs, with mild sob, no chest discomfort, with isolated PACs and one PVC, with normotensive response to exercise, without EKG changes meeting criteria for ischemia at peak exercise. In recovery there is downlsoping SR segments with T wave inversion inferiorly with gradual improvement back to baseline. Nuclear images pending. Test reviewed with Dr Thao. Referred By: Dimas Parkinson Overread By: ARSLAN MITCHELL
== END ==
LOC: HO.CARD 07:48
PROVIDERS: Visit Provider Physician Assistant Medical
DX: R06.02 Shortness of breath (principal)
CPT/HCPCS: 78452; 93017; A9500

== ENCOUNTER 2021-11-10 12:54 | Outpatient (REF) | payer MEDICAID, SELFPAY ==
--- NOTE | 2021-11-10 | PFT_ITS ---
FLOWS: FEV1 52% of predicted at 1.30 L. FVC 56% of predicted at 1.77 L. FEV1 to FVC ratio of 0.73. Positive bronchodilator response. LUNG VOLUMES: Total lung capacity 68% of predicted at 3.43 L. Residual volume 91% of predicted at 1.88 L. Slow vital capacity 52% of predicted at 1.56 L. Expiratory reserve volume 28% of predicted at 0.23 L. Diffusion capacity is mildly decreased, diffusion capacity corrects to normal after adjustment for alveolar ventilation. IMPRESSION: Moderate restrictive ventilatory defect with positive bronchodilator response. Decreased expiratory reserve volume suggests extrathoracic restriction likely secondary to abdominal obesity. Baldemar Guadalupe MD AP/MODL / [id number]
== END 2021-11-10 12:55 | disposition home or self-care (01) ==
LOC: HO.RESP 12:54
PROVIDERS: Visit Provider Internal Medicine
DX: R06.00 Dyspnea, unspecified (principal)
CPT/HCPCS: 94060; 94727; 94729

== ENCOUNTER 2024-09-23 12:00 | Outpatient (REF) | payer MEDICAID, SELFPAY ==
[2024-09-23 13:29] LABS: MANUAL DIFF FLAG NO
[2024-09-23 13:43] LABS: Estimated Average Glucose 128 mg/dL; Hemoglobin A1c % 6.1 % (<6.0); Total Hemoglobin (HGBA1C) 3481.6674 umol/L
[2024-09-23 13:53] LABS: Basophils Percent Auto 0.5 % (0-2); Eosinophils Absolute Auto 0.1 X10*3/uL (0.0-0.4); Eosinophils Percent Auto 0.9 % (0-4); Hematocrit 41.6 % (37.0-47.0); Hemoglobin 13.7 g/dl (12.0-16.0); Imm Gran Abs Auto 0.01 X10*3/uL (0.00-0.03); Imm Gran Pct Auto 0.2 % (0.0-0.4); Lymphocytes Absolute Auto 1.4 X10*3/uL (1.2-4.9); Lymphocytes Percent Auto 21.2 % (20-40); Mean Corpuscular HGB Conc 32.9 g/dl (31.0-35.0); Mean Corpuscular Volume 75.9 fL (80.0-98.0); Mean Platelet Volume 10.8 fL (9.4-12.3); Monocytes Absolute Auto 0.6 X10*3/uL (0.1-1.2); Monocytes Percent Auto 9.4 % (2-11); Neutrophils Absolute Auto 4.5 x10*3/uL (2.0-8.3); Neutrophils Percent Auto 67.8 % (45-73); Platelet Count 225 X10*3/uL (160-400); Red Blood Count 5.48 X10*6/uL (4.20-5.50); Red Cell Distribution Width 15.5 % (11.0-16.0); White Blood Count 6.6 X10*3/uL (4.8-10.8)
[2024-09-23 14:02] LABS: Alanine Aminotransferase 14 U/L (0-31); Albumin Level 3.9 g/dL (3.5-5.0); Alkaline Phosphatase 102 U/L (39-117); Anion Gap 13 (12-20); Aspartate Amino Transferase 23 U/L (5-31); Bilirubin Total 0.7 mg/dL (0.0-1.0); Blood Urea Nitrogen 22 mg/dL (9-16); Calcium 9.4 mg/dL (8.4-10.2); Carbon Dioxide 27 mmol/L (22-29); Chloride 103 mmol/L (96-108); Cholesterol 149 mg/dL (<200); Estimated Glomerular Filt Rate > 60; Glucose Random 110 mg/dL (60-115); HDL Cholesterol 48 mg/dL (>40); LDL Cholesterol Calculated 81 mg/dL (<100); Potassium 3.6 mmol/L (3.3-5.1); Sodium 139 mmol/L (135-145); Total Protein 7.5 g/dL (6.5-8.0); Triglycerides 104 mg/dL (<150)
[2024-09-23 14:09] LABS: TSH reflex Free T4 0.01 uIU/mL (0.32-4.0); Vitamin D 25-OH Total 24.6 ng/mL (>30)
[2024-09-23 14:50] LABS: Free T4 (Free Thyroxine) 1.68 ng/dL (0.71-1.85)
[2024-09-24 08:33] LABS: HIV AB/AG Nonreactive (Nonreactive); HIV Num 1 0.06 S/CO (0.00-0.99); ~HepC Num1 0.12 S/CO (0.00-0.79); ~Hepatitis C Antibody Nonreactive (Nonreactive)
== END 2024-09-23 12:01 | disposition home or self-care (01) ==
LOC: HO.HHCL 12:00
PROVIDERS: Visit Provider Internal Medicine
DX: I10 Essential (primary) hypertension (principal); E89.0 Postprocedural hypothyroidism
CPT/HCPCS: 36415; 80053; 80061; 82306; 83036; 84439; 84443; 85025; 86803; 87389

== ENCOUNTER 2024-10-05 14:42 | Outpatient (REF) | payer OTHER, MEDICAID, SELFPAY ==
--- NOTE | ~2024-10-05 | MM_ITS ---
EXAMINATION: MM SCREENING DIGITAL BREAST TOMOSYNTHESIS, BILATERAL CLINICAL INFORMATION: Screening. Asymptomatic. COMPARISON: Mammography: Comparison is made with available priors TECHNIQUE: Digital breast mammography with tomosynthesis is performed in both the craniocaudal and mediolateral oblique views along with computer-aided detection (CAD). FINDINGS: The breasts are heterogeneously dense, which may obscure small masses (ACR BI-RADS breast composition Category c). There are no significant masses, abnormal calcifications, or other abnormalities. MM/MM tomosynthesis screening BI IMPRESSION: No mammographic evidence of malignancy. ASSESSMENT: BI-RADS BI-RADS 1 - Negative RECOMMENDATION: Routine annual mammography screening. 1 year F/U This examination should not preclude the clinical evaluation of a suspicious palpable abnormality. This patient's information was entered into a reminder system with a target due date for their next mammogram. Electronically signed by: Laura Scott DO 10/14/2024 12:19 PM YESSENIA
== END 2024-10-05 14:43 | disposition home or self-care (01) ==
LOC: HO.MAMMO 14:42
PROVIDERS: PCP Internal Medicine; Visit Provider Internal Medicine
DX: Z12.31 Encounter for screening mammogram for malignant neoplasm of breast (principal)
CPT/HCPCS: 77063; 77067

== ENCOUNTER → 2024-10-05 15:00 | Outpatient (BNV) | payer MEDICAID, SELFPAY | PROVIDERS: PCP Internal Medicine; Visit Provider Internal Medicine | DX: Z12.31 Encounter for screening mammogram for malignant neoplasm of breast (principal) | CPT/HCPCS: 77063; 77067 ==

== ENCOUNTER 2024-11-19 09:54 | Outpatient (REF) | payer OTHER, MEDICAID, SELFPAY ==
[2024-11-19 12:39] LABS: TSH reflex Free T4 0.16 uIU/mL (0.32-4.0)
[2024-11-19 13:28] LABS: Free T4 (Free Thyroxine) 1.69 ng/dL (0.71-1.85)
== END 2024-11-19 09:55 | disposition home or self-care (01) ==
LOC: HO.HHCL 09:54
PROVIDERS: Visit Provider Internal Medicine
DX: E89.0 Postprocedural hypothyroidism (principal)
CPT/HCPCS: 36415; 84439; 84443

== ENCOUNTER 2025-03-03 16:10 | Outpatient (REF) | payer MEDICAID, SELFPAY ==
--- OUTSIDE RECORDS SUMMARY | 2025-03-03 18:01 | XMS_ITS | Encounter Summary ---
Author Organization [employer] Address [address] [place] [address] Care Team Providers Care Campus Security Director Name Role Phone Daphne Edward MD Primary Care Provide r Reason for Referral * Imaging (Routine) - Authorized Specialty Diagnoses / Procedures Referred By Contac t Referred To Contact Radiology Diagnoses Right upper quadrant pain Procedures US Abdomen Complete Sushma Ibanez MD [address] [place] [address] Phone: tel: fax: [address] Phone: tel: fax: Referral ID Status Reason Start Date Expiration Date V isits Requested Visits Authorized [id number] Authorized 03/03/2025 03/03/2026 1 1 Reason for Visit * Reason Comments Abdominal Pain Encounter Details Date Type Department Care Team (Late st Contact Info) Description 03/03/2025 3:30 PM EDT Office Visit [facility] [address] [place], [place] [phone] Sushma Ibanez MD [address] [place], [place] [phone] Right upper quadrant pain (Primary Dx); Dietary counseling; Exercise counseling; Class 3 severe obesity with serious comorbidity and body mass index (BMI) of 40.0 to 44.9 in adult, unspecified obesity type (CMS/HCC) Social History Tobacco Use Types Packs/Day Years Used Date Smoking Tobacco: Never Passive Smoke Exposure: Never Smokeless Tobacco: Never Tobacco Cessation:Counseling Given: Not Answered Alcohol Use Standard Drinks/Week Comments Never 0 (1 standard drink = 0.6 oz pur e alcohol) Alcohol Answer Date Recorded Frequency of Alcohol Consumption Not on file 09/22/2024 Average Number of Drinks Not on file 024 Frequency of Binge Drinking Not on file 09/02 Score 0 09/22/2024 Depression Answer Date Recorded Patient Health Questionnaire-9 Score 0 09/22/2024 Patient Health Questionnaire-9 Score 0 09/22/2024 Last PHQ-9: Questionnaire Data Not on file 1 Housing Stability Answer Date Recorded What is your housing situation today? I have kristal munson 09/22/[address] you li ve. Do you have problems with any of the following? None of the above 09/22/2024 Food Insecurity Answer Date Recorded Within the past 12 months, y ou worried that your food would run out before you got money to buy more: Never True 09/22/2024 Within the past 12 months,th e food you bought just didn't last and you didn't have enough money to get more: Never True Transportation Answer Date Recorded In the past 12 months, has l ack of transportation kept you from medical appts, meetings, work or from getting things needed for daily living? No 09/22/2024 Utilities Answer Date Recorded In the past 12 months, has t he electric, gas, oil or water company threatened to shut off services in your home? No 09/22/2024 Depression Answer Date Recorded Patient Health Questionnaire-2 Score 0 09/22/2024 Internet Access Answer Date Recorded Internet Access Q1 No 09/22/2024 Internet Access Q2 I do not want or need it 09/02 Comments Unknown Sex and Gender Information Value Date Recorded Sex Assigned at Female 10/01/2022 10:18 AM EDT Legal Sex Female 10:18 AM EDT Gender Identity Female 10/01/2022 10:18 AM EDT Sexual Orientation Straight 10/01/2022 10 :18 AM EDT documented as of this encounter Last Filed Vital Signs Vital Sign Reading Time Taken Comments Blood Pressure 149/76 03/03/2025 3:39 PM EDT Pulse 67 03/03/2025 3:39 PM EDT Temperature 36.3 ??C (97.3 ??F) 03/03/2025 3:39 PM ED T Respiratory Rate 18 03/03/2025 3:39 PM EDT Oxygen Saturation 98% 03/03/2025 3:39 PM EDT Inhaled Oxygen Concentration - - Weight 110 kg (243 lb) 03/03/2025 3:39 PM EDT Height 162.6 cm (5' 4 ) 03/03/2025 3:39 PM EDT Body Mass Index 41.71 03/03/2025 3:39 PM EDT documented in this encounter Plan of Treatment Upcoming Encounters Date Type Department Care Team (Late st Contact Info) Description 04/19/2025 10:00 AM EDT Office Visit [facility] [address] [place] [address] Ashley Martin Scheduled Orders Name Type Priority Associated Diagnoses Orde r Schedule Comprehensive Metabolic Panel Lab Routine Right upper quadrant pain Expected: 03/03/2025 (Approximate), Expires: 03/03/2026 US Abdomen Complete Imaging Routine Right upper quadrant pain Expected: 03/03/2025, Expires: 03/03/2026 documented as of this encounter Visit Diagnoses Diagnosis Right upper quadrant pain- Primary Abdominal pain, right upper quadrant Dietary counseling Dietary surveillance and counseling Exercise counseling Class 3 severe obesity with serious comorbidity and body mass index (BMI) of 40.0 to 44.9 in adult, unspecified obesity type (CMS/HCC) documented in this encounter Additional Health Concerns Assessment Noted Time PHQ-9 Depression Total Score: 0 09/22/20 24 10:47 AM EDT documented as of this encounter Care Teams Campus Security Director Relationship Specialty Start Date End Date Daphne Edward MD [address] [place] [address] PCP - General Family Medicine 08/13/18 documented as of this encounter
--- OUTSIDE RECORDS SUMMARY | 2025-03-03 18:01 | XMS_ITS | Encounter Summary ---
Author Organization [facility] Address [address] [place] [address] [address] [place] [address] Care Team Providers Care Armhole Feller Handstitching Machine Name Role Phone Daphne Edward MD Primary Care Provide r Reason for Visit * Reason Comments Med Refill Encounter Details Date Type Department Care Team (Late st Contact Info) Description 09/21/[address] [facility] [address] [place] [address] Daphne Edward MD [address] [place] [address] Post-surgical hypothyroidism Social History Tobacco Use Types Packs/Day Years Used Date Smoking Tobacco: Never Assessed Comments Unknown Sex and Gender Information Value Date Recorded Sex Assigned at Female 10/01/2022 10:18 AM EDT Legal Sex Female 10:18 AM EDT Gender Identity Female 10/01/2022 10:18 AM EDT Sexual Orientation Straight 10/01/2022 10 :18 AM EDT documented as of this encounter Plan of Treatment Upcoming Encounters Date Type Department Care Team (Late st Contact Info) Description 04/19/2025 10:00 AM EDT Office Visit [facility] [address] [place] [address] Ashley Martin documented as of this encounter Visit Diagnoses Diagnosis Post-surgical hypothyroidism Postsurgical hypothyroidism documented in this encounter Care Teams Armhole Feller Handstitching Machine Relationship Specialty Start Date End Date Daphne Edward MD [address] [place], [place] [phone] PCP - General Family Medicine 08/13/18 documented as of this encounter
--- OUTSIDE RECORDS SUMMARY | 2025-03-03 18:01 | XMS_ITS | Encounter Summary ---
Author Organization [facility] Address [address] [place] [address] [address] [place] [address] Care Team Providers Care Footwear Sales Coordinator Name Role Phone Dapnhe Edward MD Primary Care Provide r Encounter Details Date Type Department Care Team (Latest Contact Info) Description 03/13/2019 Abstract [facility] CONVERSIONS Dental, Provider, DDS Social History Tobacco Use Types Packs/Day Years [...] Upcoming Encounters Date Type Department Care Team ( st Contact Info) Description 04/19/2025 10:00 AM EDT Office Visit [facility] [address] [place] [address] Ashley Martin documented as of this encounter Visit Diagnoses Not on filedocumented in this encounter Care Teams Footwear Sales Coordinator Relationship Specialty Start Date End Date Daphne Edward MD [address] [place], [place] [phone] PCP - General Family Medicine 08/13/18 documented as of this encounter
--- OUTSIDE RECORDS SUMMARY | 2025-03-03 18:01 | XMS_ITS | Encounter Summary ---
Author Organization [employer] Address [address] [address] [place] [address] Care Team Providers Care Weatherization Installer Name Role Phone Daphne Edward MD Primary Care Provide r Reason for Visit * Reason Onset Date Comments Nurse Triage 03/01/2025 Encounter Details Date Type Department Care Team ([facility] st Contact Info) Description 03/01/2025 Telephone [facility] [address] [place] [address] Daphne Edward MD [address] [place] [address] Nurse Triage Social History Tobacco Use Types Packs/Day Years Used Date Smoking Tobacco: Never Passive Smoke Exposure: Never Smokeless Tobacco: Never Alcohol Use Standard Drinks/Week Comments Never 0 [...] AM EDT documented as of this encounter Miscellaneous Notes * Telephone Encounter - Renata Streeter RN - 03/01/2025 10:52 AM EDT Triage call with [facility] [place] [id number]. Pt reports abdominal pain to the right of umbilicus. Pt reports pain comes and goes but, when the pain comes it is very strong . Pt reports gall bladder was removed several years ago but, the pain is similar to that . Last bowel movement was this morning, denies constipation, diarrhea, vomiting and fever. Pt has had some constipation about 2 weeks ago but stool today was normal, soft, formed. Pt reports some nausea when pain comes. ASK apt with Dr. Ibanez 330pm 03/03/25. Unable to verify insurance due to computer error. Pt is advised to seek assist at nearest ED if pain increases and becomes constant Pt agrees. Protocol Used: Abdominal Pain - Female (Adult) Care Advice Discussed: * Reassurance and Education - Mild Stomachache * Drink Clear Fluids * Pass a Stool * Reasons To Call Back - Severe pain lasts over 1 hour - Constant pain lasts over 2 hours - Intermittent pains (comes and goes, cramps) lasts over 48 hours - You are - You become worse * Telephone Encounter - Beatrizmaris Pimentel - 03/01/2025 10:10 AM EDT Symptom: Abdominal Pain - Female - Not Outcome: Schedule an urgent appointment (within 4 hours) or talk to a nurse or provider soon Reason: Getting worse The caller accepted this outcome. documented in this encounter Plan of Treatment Upcoming Encounters Date Type Department Care Team (Late st Contact Info) Description 04/19/2025 10:00 AM EDT Office Visit [facility] [address] [place] [address] Ashley Martin documented as of this encounter Visit Diagnoses Not on filedocumented in this encounter Additional Health Concerns Assessment Noted Time PHQ-9 Depression Total Score: 0 09/22/20 24 10:47 AM EDT documented as of this encounter Care Teams Weatherization Installer Relationship Specialty Start Date End Date Daphne Edward MD [address] [place] [address] PCP - General Family Medicine 08/13/18 documented as of this encounter
--- OUTSIDE RECORDS SUMMARY | 2025-03-03 18:01 | XMS_ITS | Encounter Summary ---
Author Organization [employer] Address [address] [facility] 7t [place] [address] Care Team Providers Care Military Cook Name Role Phone Daphne Edward MD Primary Care Provide r Reason for Visit * Reason Comments Med Refill Encounter Details Date Type Department Care Team ([facility] st Contact Info) Description 02/04/2025 Refill [facility] MEDICINE [address] [place] [address] Daphne Edward MD [address] [place] [address] Social History Tobacco Use Types Packs/Day Years [...] Description 04/19/2025 10:00 AM EDT Office Visit [facility] ADULT DENTAL [address] [place] [address] Ashley Martin documented as of this encounter Visit Diagnoses Not on filedocumented in this encounter Additional Health Concerns Assessment Noted Time PHQ-9 Depression Total Score: 0 09/22/20 24 10:47 AM EDT documented as of this encounter Care Teams Military Cook Relationship Specialty Start Date End Date Daphne Edward MD [address] [place] [address] PCP - General Family Medicine 08/13/18 documented as of this encounter
--- OUTSIDE RECORDS SUMMARY | 2025-03-03 18:01 | XMS_ITS | Encounter Summary ---
Author Organization [employer] Address [address] [facility] 7t [place] [address] Care Team Providers Care Shipping Receiving Clerk Name Role Phone Daphne Edward MD Primary Care Provide r Encounter Details Date Type Department Care Team (Latest Contact Info) Description 03/03/2025 Travel Social History Tobacco Use Types Packs/Day Years [...] Description 04/19/2025 10:00 AM EDT Office Visit [facility] ADULT DENTAL [address] [place] [address] Ashley Martin documented as of this encounter Visit Diagnoses Not on filedocumented in this encounter Additional Health Concerns Assessment Noted Time PHQ-9 Depression Total Score: 0 09/22/20 24 10:47 AM EDT documented as of this encounter Care Teams Shipping Receiving Clerk Relationship Specialty Start Date End Date Daphne Edward MD [address] [place] [address] PCP - General Family Medicine 08/13/18 documented as of this encounter
--- OUTSIDE RECORDS SUMMARY | 2025-03-03 18:01 | XMS_ITS | Clinical Summary ---
Author Organization [employer] Address [address] [place] [address] 7t [place] [address] Care Team Providers Care Film Reproducer Name Role Phone Daphne Edward MD Primary Care Provide r Allergies Active Allergy Reactions Criticality Noted Date Comments Coconut Flavoring Agent (Non-Screening) 09/22/2024 Medications levothyroxine (Synthroid) 125 MCG tabletIndications: Postoperative hypothyroidism Take 1 tablet (125 mcg) by mouth before breakfast. 30 tablet 2 4 09/24/20 25 Active amLODIPine (Norvasc) 5 MG tablet TAKE 1 TABLET BY MOUTH EVERY DAY 90 tablet 1 4 Active lisinopril 30 MG tabletIndications: HTN (hypertension), benign TAKE 1 TABLET (30 MG) BY MOUTH IN THE MORNING 90 tablet 1 4 Active hydroCHLOROthiazid e (HYDRODiuril) 50 MG tablet TAKE 1 TABLET BY MOUTH EVERY DAY IN THE MORNING 90 tablet 1 5 Active metoprolol succinate XL (Toprol-XL) 50 MG 24 hr tabletIndications: Hypertension, unspecified type TAKE 1 TABLET BY MOUTH EVERY DAY 90 tablet 1 5 Active atorvastatin (Lipitor) 20 MG tablet TAKE 1 TABLET BY MOUTH EVERY DAY 90 tablet 5 Active levothyroxine (Synthroid, Levoxyl) 112 MCG tabletIndications: Postoperative hypothyroidism TAKE 1 TABLET BY MOUTH BEFORE BREAKFAST 90 tablet 5 Active ibuprofen 600 MG tablet Take 1 tablet (600 mg) by mouth 3 times daily for 20 days. 60 tablet 5 03/23/20 25 Active Active Problems Problem Noted Date Diagnosed Date Retained dental root 09/23/2024 Colon cancer screening 09/22/2024 Encounter for screening mamm ogram for malignant neoplasm of breast 09/22/2024 Shoulder pain 07/03/2024 Multiple joint pain 07/03/2024 Positive BRITANY (antinuclear antibody) 07/03/2024 Mild intermittent asthma 07/03/2024 Hypertensive disorder 07/03/2024 Edema of lower extremity 07/03/2024 Depressive disorder 07/03/2024 Dyspnea on exertion 07/03/2024 Osteoarthritis involving mul tiple joints on both sides of body 06/03/2018 Hyperlipidemia 06/03/2018 Essential hypertension 06/03/2018 Assessment & Plan (09/22/2024 11:24 AM EDT): Maintenance: BMP: ordered Lipid Panel: ordered ASCVD Risk: Calculate pending updated labs - Aerobic exercise to reduce BP. Initial goal of 30 min walk 3-5x/week. Increase as tolerated. - low-sodium diet (goal: <2g/day) and heart healthy diet such as DASH to reduce BP and prevent ASCVD. - Home BP monitoring 1-2 x day with goal of <140/90. - Seek immediate medical attention for chest pain, palpitations, SOB, syncope, or sudden changes in mental status. - Do not change or discontinue current prescriptions without first consulting health care provider Peripheral vascular disease 06/03/2018 Postoperative hypothyroidism 06/03/2018 Postoperative hypothyroidism 06/03/2018 Assessment & Plan (09/22/2024 11:25 AM EDT): TSH to be check with labs Encounters Date Type Department Care Team Description 03/03/2025 3:30 PM EDT Office Visit [facility] MEDICINE [address] [place] [phone] Sushma Ibanez MD Right upper quadrant pain (Primary Dx); Dietary counseling; Exercise counseling; Class 3 severe obesity with serious comorbidity and body mass index (BMI) of 40.0 to 44.9 in adult, unspecified obesity type (CMS/HCC) 03/03/2025 Travel 03/01/2025 Telephone [facility] [address] [place] [phone] Daphne Edward MD Nurse Triage 02/04/2025 Refill [facility] [address] [place] [address] Daphne Edward MD 01/27/2025 2:00 PM EST Office Visit [facility] ADULT DENTAL [address] [place] [address] Holland-Abbasi, Jennifer, DDS Fracture of removable partial denture (Primary Dx) 01/25/2025 1:30 PM EST Office Visit [facility] ADULT DENTAL [address] [place] [address] Holland-Abbasi, Jennifer, DDS Fracture of denture (Primary Dx); Broken clasp of denture 01/21/2025 10:30 AM EST Office Visit [facility] ADULT DENTAL [address] [place] [address] Holland-Abbasi, Jennifer, DDS Fracture of denture (Primary Dx); Teeth missing 01/15/2025 2:00 PM EST Office Visit [facility] ADULT DENTAL [address] [place] [address] Holland-Abbasi, Jennifer, DDS 12/22/2024 Refill [facility] [address] [place] [address] Daphne Edward MD Postoperative hypothyroidism 12/20/2024 Refill [facility] [address] [place] [address] Daphne Edward MD 12/13/2024 Refill [facility] [address] [place] [address] Daphne Edward MD Hypertension, unspecified type from Last 3 Months Immunizations Name Administration Dates Next Due Influenza injectable quadriv alent IIV4 with preservative 08/26/2018 Influenza injectable quadriv alent preservative free 10/19/2021,11/28/2020,10/20/2019,02/02 Influenza, High Dose Seasona l, Preservative Free 09/22/2024 Influenza, Split (incl. ovidio fied surface antigen) 09/08/2013 Influenza, seasonal, injecta ble, preservative free 01/19/2013 Pfizer Covid-19 Vaccine 12+ 09/22/2024 Pneumococcal Conjugate PCV 20 09/22/2024 Pneumococcal Polysaccharide PPSV23 01/20/2013 TD (adult), 2 Lf tetanus tox oid, preservative free, adsorbed 02/03/2007 Tdap 09/08/2013 Zoster, live 11/10/2018 Social History Tobacco Use Types Packs/Day Years [...] Orientation Straight 10/01/2022 10 :18 AM EDT Last Filed Vital Signs Vital Sign Reading [...] Mass Index 41.71 03/03/2025 3:39 PM EDT Plan of Treatment Upcoming Encounters Date Type Department Care Team (Late st Contact Info) Description 04/19/2025 10:00 AM EDT Office Visit [facility] ADULT DENTAL [address] [place] [address] Ashley Martin Health Maintenance Due Date Last Done Comments CT Colonography 1960 FIT DNA/Cologuard 1960 FIT 1960 FOBT 1960 Sigmoidoscopy 1960 RSV Patients and Patients Aged 60 years or older (1 - Risk 60-74 years 1-dose series) 2018 Zoster Vaccines (2 of 3) 01/05/2019 11/10/2018 Colonoscopy 09/23/2021 09/23/2018 Colorectal Cancer Screening 09/23/2021 DTaP/Tdap/Td Vaccines (2 - Td or Tdap) 09/08/2023 09/08/2013, 02/03/2007 Dental X-Ray: Full Mouth 01/04/2025 01/03/2022 Dental Oral Exam 02/17/2025 08/19/2024, 01/2022, 09/14/2019, Additional history exists Dental Prophylaxis 02/17/2025 08/19/2024, 0 01/03/2022, 09/14/2019, Additional history exists Dental X-Ray: Bitewings 08/20/2025 08/19/20 24, 01/03/2022, 09/14/2019, Additional history exists Alcohol/Substance Use Screening 09/22/2025 09/22/2024 Depression Screening 09/22/2025 09/22/2024, 09/22/20 24 SDOH Screening 09/22/2025 09/22/2024 Diabetes: Hemoglobin A1C 09/23/2025 024, 12/28/2021, 02/16/2021, Additional history exists Mammogram 10/05/2025 10/05/2024, 09/01, 06/17/2020, Additional history exists Tobacco Screening 03/03/2026 03/03/2025 Lipid Panel 09/23/2029 09/23/2024, 12/28/2021 Cervical Cancer Screening Discontinued HPV/Cotest Discontinued 10/09/2018 COVID-19 Vaccine Completed 09/22/2024, , 03/14/2021, Additional history exists Influenza Vaccine Completed 09/22/2024, , 11/28/2020, Additional history exists Pneumococcal Vaccine: 50+ Years Completed 09/22/2024, 01/20/2013 Hepatitis C Screening Completed 09/23/2024 HIB Vaccines Aged Out No longer eligi ble based on patient's age to complete this topic HPV Vaccines Aged Out No longer eligi ble based on patient's age to complete this topic Hepatitis A Vaccines Aged Out No long er eligible based on patient's age to complete this topic Hepatitis B Vaccines Aged Out No long er eligible based on patient's age to complete this topic IPV Vaccines Aged Out No longer eligi ble based on patient's age to complete this topic Meningococcal Vaccine Aged Out No gabby yolanda eligible based on patient's age to complete this topic Pap Smear Discontinued RSV under 20 months Aged Out No longe r eligible based on patient's age to complete this topic Rotavirus Vaccines Aged Out No longer eligible based on patient's age to complete this topic Procedures Procedure Name Priority Date/Time Associated Diagnosis Comments CASE PRESENTATION, DETAILED AND EXTENSIVE TREATMENT PLANNING Routine 01/27/2025 2:00 PM EST REPAIR RESIN PARTIAL DENTURE BASE, ANAM Routine 01/27/2025 2:00 PM EST CASE PRESENTATION, DETAILED AND EXTENSIVE TREATMENT PLANNING Routine 01/25/2025 1:30 PM EST Fracture of denture Broken clasp of denture 6 ADD CLASP TO EXISTING PARTIAL DENTURE - PER TOOTH Routine 01/25/2025 1:30 PM EST Fracture of denture Broken clasp of denture 2 ADD TOOTH TO EXISTING PARTIAL DENTURE Routine 01/25/2025 1:30 PM EST Fracture of denture Broken clasp of denture 12 ADD TOOTH TO EXISTING PARTIAL DENTURE Routine 01/25/2025 1:30 PM EST Fracture of denture Broken clasp of denture DENTURE IMPRESSION Routine 01/21/2025 10 :30 AM EST NO CHARGE PROCEDURE Routine 01/15/2025 2 :00 PM EST BI MAMMOGRAM SCREENING TOMOSYNTHESIS BILATERAL Routine 10/05/2024 3:00 PM EST Encounter for screening mammogram for malignant neoplasm of breast HEMOGLOBIN A1C Routine 09/23/2024 12:08 PM EDT Essential hypertension Postoperative hypothyroidism LIPID PANEL, STANDARD Routine 09/23/2024 12:08 PM EDT Essential hypertension Postoperative hypothyroidism HEPATITIS C AB W/REFL TO HCV RNA, QN, PCR Routine 09/23/2024 12:05 PM EDT Essential hypertension Postoperative hypothyroidism PROPHYLAXIS - ADULT Routine 08/19/2024 9 :15 AM EDT Dental calculus Dental plaque BITEWINGS - 4 RADIOGRAPHIC IMAGES Routine 08/19/2024 9:15 AM EDT PERIODIC ORAL EVALUATION - ESTABLISHED PATIENT Routine 08/19/2024 9:15 AM EDT Dental calculus Dental plaque Periodontal disease Encounter for dental examination Dental caries INTRAORAL - COMPLETE SERIES OF RADIOGRAPHIC IMAGES Routine 01/03/2022 12:00 AM EST ZZZ HISTORICAL HPV MRNA E6/E7 Routine 10/09/2018 10:30 AM EST HM COLONOSCOPY Routine 09/23/2018 from Last 3 Months or Most Recently Relevant to Health Maintenance Results * BI Mammogram Screening Tomosynthesis Bilateral (10/05/2024 3:00 PM EST) Anatomical Region Laterality Modality Breast Bilateral Mammography 10/05/2024 3:00 PM EST Narrative 10/14/2024 12:23 PM EST ? [facility] ? [address] ?[place] [address] ? Mammography Report ? Signed ? Patient: Lindquist,Iris Z ?MR#: [id number] ? : 1960 ?Acct:[id number] ? Age/Sex: 64 / F ?ADM Date: 10/05/24 ? Loc: HO.MAMMO ? Attending Dr: Daphne Garrido MD ? Ordering Physician: Daphne Edward MD ?Results: ?? 1Negative ? Date of Service: 10/05/24 ?Follow Up: 1 Year From Orig ?? inal Mammogram ? Procedure(s): MM tomosynthesis screening BI ?? Accession Number(s): [id number] ? cc: Daphne Edward MD ? EXAMINATION: ?? MM SCREENING DIGITAL BREAST TOMOSYNTHESIS, BILATERAL ? CLINICAL INFORMATION: ? Screening. Asymptomatic. ? COMPARISON: ?? Mammography: Comparison is made with available priors ? TECHNIQUE: ?? Digital breast mammography with tomosynthesis is performed in both the ?? craniocaudal and mediolateral oblique views along with computer-aided ?? detection (CAD). ? FINDINGS: ?? The breasts are heterogeneously dense, which may obscure small masses ?? (ACR BI-RADS breast composition Category c). ? There are no significant masses, abnormal calcifications, or other ?? abnormalities. ? MM/MM tomosynthesis screening BI ?? IMPRESSION: ?? No mammographic evidence of malignancy. ? ASSESSMENT: ? BI-RADS BI-RADS 1 - Negative ? RECOMMENDATION: ?? Routine annual mammography screening. ? 1 year F/U ? This examination should not preclude the clinical evaluation of a ?? suspicious palpable abnormality. ? This patient's information was entered into a reminder system with a ?? target due date for their next mammogram. ? Electronically signed by: ??Laura Scott DO ??10/14/2024 12:19 PM EST ? Dictated By: ?Laura Scott DO ? Signed By: ?<Electronically signed by Laura Scott, DO in OV> ? 10/14/24 1219 ? DD/ 1500 ? TD/TT: 10/05/24 1524 ? Photographic Editor: ? Procedure Note Zaid, Gaye - 10/14/2024 [facility] [facility] [address] [place] [address] Mammography Report Signed Patient: Alejandra Lindquist ZMR#: [id number] : 8Acct:[id number] Age/Sex: 64 / FADM Date: 10/05/24 Loc: HO.MAMMO Attending Dr: Daphne Garrido MD Ordering Physician: Daphne Edward MDResults: 1Negative Date of Service: 10/05/24Follow Up: 1 Year From Orig inal Mammogram Procedure(s): MM tomosynthesis screening BI Accession Number(s): [id number] cc: Daphne Edward MD EXAMINATION: MM SCREENING DIGITAL BREAST TOMOSYNTHESIS, BILATERAL CLINICAL INFORMATION: Screening. Asymptomatic. COMPARISON: Mammography: Comparison is made with available priors TECHNIQUE: Digital breast mammography with tomosynthesis is performed in both the craniocaudal and mediolateral oblique views along with computer-aided detection (CAD). FINDINGS: The breasts are heterogeneously dense, which may obscure small masses (ACR BI-RADS breast composition Category c). There are no significant masses, abnormal calcifications, or other abnormalities. MM/MM tomosynthesis screening BI IMPRESSION: No mammographic evidence of malignancy. ASSESSMENT: BI-RADS BI-RADS 1 - Negative RECOMMENDATION: Routine annual mammography screening. 1 year F/U This examination should not preclude the clinical evaluation of a suspicious palpable abnormality. This patient's information was entered into a reminder system with a target due date for their next mammogram. Electronically signed by: Laura Scott DO 10/14/2024 12:19 PM EST Dictated By: Laura Scott DO Signed By: <Electronically signed by Laura Scott DO in OV> 10/14/24 1219 DD/ 1500 TD/TT: 10/05/24 1524 Photographic Editor: us Daphne Garrido MD IMG BI PROCEDURES Fin al Result * (ABNORMAL) Hemoglobin A1c (09/23/2024 12:08 PM EDT) Hemoglobin A1c 6.1(H) <6.0 % [facility] Comment:Hemoglobin A1C Refer ence Range Adults: 4.8 - 6.0 % Non diabetic: < 6.0 % Goal: < 7.0 %Additional Action Suggested: > 8.0 %Note: Hemoglobin A1c results are invalid for patients with abnormal amounts of HbF. Blood transfusions may impact the HbA1c concentration in the patient sample. Estimated Average Glucose 128 mg/dL [facility] Comment:eAG = Estimated ave rage glucose which is %A1C expressed asaverage glucose, using the formula of the J2G-SqfzdmmBahezgi Glucose study (ADAG), Diabetes Care, Vol.31,#8,Aug. 2007 Blood Venous blood specimen / Unknown 09/23/2024 12:08 PM EDT 09/23/2024 1:24 PM EDT us Daphne Garrido MD LAB BLOOD ORDERABLES Final Result [facility] [address] [place] [phone] * Lipid Panel, Standard (09/23/2024 12:08 PM EDT) Triglycerides 104 <150 mg/dL [facility] Comment:Desirable Triglyceri de: less than 150 mg/dLBorderline High Triglyceride 150-199 mg/dLHigh Triglyceride: 200-499 mg/dLVery High Triglyceride: greater than or equal to 5OO mg/dL Cholesterol 149 <200 mg/dL [facility] Comment:Desirable Cholestero l: less than 200 mg/dLBorderline High Cholesterol: 200-239 mg/dLHigh Cholesterol: greater than 239 mg/dL LDL Cholesterol Calculated 81 <100 mg/dL [facility] Comment:Desirable LDL: less than 100 mg/dLNear Optimal/Above Optimal LDL: 110- 129 mg/dLBorderline High LDL: 130-159 mg/dLHigh LDL: 160-189 mg/dLVery High LDL: greater than or equal to 190 mg/dL HDL Cholesterol 48 >40 mg/dL [facility] Comment:Desirable HDL: great er than 40 mg/dL Note: This HDL assay may give artificially low results in patients with liver disease. Blood Venous blood specimen / Unknown 09/23/2024 12:08 PM EDT 09/23/2024 1:24 PM EDT us Daphne Garrido MD LAB BLOOD ORDERABLES Final Result [facility] [address] [place] [phone] * Hepatitis C Antibody with Reflex to HCV, RNA, Quantitative, Real-Time PCR (09/23/2024 12:05 PM EDT) Hepatitis C Antibody Nonreactive Nonreactive [facility] Comment:Antibodies to HCV no t detected; does not exclude early acuteHCV infection. Blood Venous blood specimen / Unknown 09/23/2024 12:05 PM EDT 09/23/2024 1:24 PM EDT us Daphne Garrido MD LAB BLOOD ORDERABLES Final Result [facility] [address] [place] [phone] [phone] * HPV mRNA E6/E7 (10/09/2018 10:30 AM EST) HPV mRNA E6/E7 Not Detected NOT DETECTED [facility] Comment: This test was performed using the APTIMA(R) HPV Assay ([employer] This assay detects E6/E7 viral messenger RNA (mRNA) from 14 high-risk HPV types (16,18,31,33,35,39,45,51, 52,56,58,59,66,68). For additional information please refer to: http://education.HemaSource/faq/NLZ433p6 (This link is being provided for informational/ educational purposes only.) The analytical performance characteristics of this assay have been determined by [employer] [place], [place]. The modifications have not been cleared or approved by the FDA. This assay has been validated pursuant to the CLIA regulations and is used for clinical purposes. Test Performed by [facility], [facility], [address] [place] [address] Ranulfo Isbell M.D., Ph.D., Director of Laboratories , CLIA [id number] Please note: ??Effective 08/13/2016, HPV testing will be performed using [employer]'s APTIMA test which targets mRNA. Detecting mRNA instead of DNA, as in older methods, offers significant improvements in specificity. 10/09/2018 10:3 0 AM EST Rocío Bob CNM HISTORICAL/NON ORDERABLE LABS Final Result [facility] [address] [place] [address], * Hm Colonoscopy (09/23/2018) Historical Provider HEALTH MAINTENANCE Final Result from Last 3 Months or Most Recently Relevant to Health Maintenance Insurance [place] [facility] MEDICARE MEDICARE [place] STAND ADULT Care Teams Film Reproducer Relationship Specialty Start Date End Date Daphne Edward MD [address] [place] [phone] PCP - General Family Medicine 08/13/18
--- OUTSIDE RECORDS SUMMARY | 2025-03-03 18:01 | XMS_ITS | Encounter Summary ---
Author Organization [employer] [facility] Address [address] [place] [address] 7[address] [place] [address] Care Team Providers Care Desulfurizer Machine Name Role Phone Daphne Edward MD Primary Care Provide r Encounter Details Date Type Department Care Team (Latest Contact Info) Description 01/03/2022 Abstract [facility] CONVERSIONS Dental, Provider, DDS Social History Tobacco [...] Description 04/19/2025 10:00 AM EDT Office Visit [facility] ADULT DENTAL [address] [place] [address] Ashley Martin documented as of this encounter Visit Diagnoses Not on filedocumented in this encounter Care Teams Desulfurizer Machine Relationship Specialty Start Date End Date Daphne Edward MD [address] [place], [place] [phone] PCP - General Family Medicine 08/13/18 documented as of this encounter
--- OUTSIDE RECORDS SUMMARY | 2025-03-03 18:01 | XMS_ITS | Encounter Summary ---
Author Organization [employer] [facility] Address [address] [place] [address] [address] [place] [address] Care Team Providers Care Drill Presser Name Role Phone Daphne Edward MD Primary Care Provide r Encounter Details Date Type Department Care Team (Late st Contact Info) Description 08/21/2023 Orders Only [facility] MEDICINE [address] [place] [address] Provider, [place], Social History Tobacco Use Types Packs/Day Years [...] Description 04/19/2025 10:00 AM EDT Office Visit [facility] ADULT DENTAL [address] [place] [address] Ashley Martin documented as of this encounter Procedures Procedure Name Priority Date/Time Associated Diagnosis Comments HM COLONOSCOPY Routine 09/23/2018 documented in this encounter Results * Hm Colonoscopy (09/23/2018) Historical Provider HEALTH MAINTENANCE Final Result documented in this encounter Visit Diagnoses Not on filedocumented in this encounter Care Teams Drill Presser Relationship Specialty Start Date End Date Daphne Edward MD [address] [place] [address] PCP - General Family Medicine 08/13/18 documented as of this encounter
--- OUTSIDE RECORDS SUMMARY | 2025-03-03 18:01 | XMS_ITS | Encounter Summary ---
Author Organization [employer] [facility] Address [address] [place] [address] [address] [place] [address] Care Team Providers Care Grain Weigher Name Role Phone Daphne Edward MD Primary Care Provide r Reason for Visit * Reason Comments Med Refill Encounter Details Date Type Department Care Team (Late st Contact Info) Description 08/20/2023 Refill [facility] MEDICINE [address] [place] [address] Daphne Edward MD [address] [place] [address] Post-surgical hypothyroidism Social History Tobacco Use Types [...] Description 04/19/2025 10:00 AM EDT Office Visit [facility] ADULT DENTAL [address] [place] [address] Ashley Martin documented as of this encounter Visit Diagnoses Diagnosis Post-surgical hypothyroidism Postsurgical hypothyroidism documented in this encounter Care Teams Grain Weigher Relationship Specialty Start Date End Date Daphne Edward MD [address] [place], [place] [phone] PCP - General Family Medicine 08/13/18 documented as of this encounter
--- OUTSIDE RECORDS SUMMARY | 2025-03-03 18:01 | XMS_ITS | Encounter Summary ---
Author Organization [employer] Address [address] [place] [address] 7t [place] [address] Care Team Providers Care Scaffold Worker Name Role Phone Daphne Edward MD Primary Care Provide r Encounter Details Date Type Department Care Team (Late st Contact Info) Description 05/27/2023 Orders Only [facility] CHC MED & PEDS [address] [place] [address] Jacqueline Acevedo LPN Social History Tobacco Use Types Packs/Day Years [...] 04/19/2025 10:00 AM EDT Office Visit [facility] ADULT DENTAL [address] [place] [address] Ashley Martin documented as of this encounter Visit Diagnoses Not on filedocumented in this encounter Care Teams Scaffold Worker Relationship Specialty Start Date End Date Daphne Edward MD [address] [place] [address] PCP - General Family Medicine 08/13/18 documented as of this encounter
[2025-03-03 18:41] LABS: Alanine Aminotransferase 17 U/L (0-31); Alkaline Phosphatase 96 U/L (39-117); Anion Gap 12 (12-20); Aspartate Amino Transferase 21 U/L (5-31); Bilirubin Total 0.4 mg/dL (0.0-1.0); Blood Urea Nitrogen 21 mg/dL (9-16); Calcium 8.7 mg/dL (8.4-10.2); Carbon Dioxide 29 mmol/L (22-29); Chloride 103 mmol/L (96-108); Estimated Glomerular Filt Rate > 60; Glucose Random 118 mg/dL (60-115); Potassium 4.2 mmol/L (3.3-5.1); Sodium 140 mmol/L (135-145); Total Protein 7.5 g/dL (6.5-8.0)
== END 2025-03-03 16:11 | disposition home or self-care (01) ==
LOC: HO.HHCL 16:10
PROVIDERS: Visit Provider General Practice
DX: R10.11 Right upper quadrant pain (principal)
CPT/HCPCS: 36415; 80053

== ENCOUNTER 2025-05-06 08:15 | Outpatient (REF) | payer MEDICARE, SELFPAY ==
--- NOTE | ~2025-05-06 | US_ITS ---
CLINICAL HISTORY: pain superior to prior open cholecystectomy scar US abdomen limited with color Doppler Comparison: None Findings: Visualized pancreas is normal. Tail obscured by bowel gas. Liver is normal in size and coarsened echotexture. Right lobe length 16.4 cm. No focal hepatic masses. Common duct 5.5 mm diameter. Post cholecystectomy. Main portal vein antegrade. Right kidney measures, 9.4 cm in length. Normal cortical width and echotexture. No hydronephrosis calculus or mass. Impression: 1. Post cholecystectomy 2. Coarse hepatic echotexture reflecting hepatic steatosis or diffuse hepatocellular disease. No focal hepatic lesions 3. No biliary dilatation This document has been electronically signed by: Mina Whitten MD on 05/06/2025 11:17:54
--- OUTSIDE RECORDS SUMMARY | 2025-05-06 08:23 | XMS_ITS | Encounter Summary ---
Author Organization [employer] Address [address] [facility] 7t [place] [address] Care Team Providers Care Rn Progressive Care Unit Name Role Phone Daphne Edward MD Primary Care Provide r Reason for Visit * Reason Comments Med Refill Encounter Details Date Type Department Care Team ([facility] st Contact Info) Description 04/07/2025 Refill [facility] MEDICINE [address] [place] [address] Daphne Edward MD [address] [place] [address] Hypertension, unspecified type Social History Tobacco Use Types Packs/Day Years [...] Care Team (Late st Contact Info) Description 11/15/2025 10:00 AM EST Office Visit [facility] ADULT DENTAL [address] [place] [address] Ashley Martin documented as of this encounter Visit Diagnoses Diagnosis Hypertension, unspecified type documented in this encounter Additional Health Concerns Assessment Noted Time PHQ-9 Depression Total Score: 0 09/22/20 24 10:47 AM EDT documented as of this encounter Care Teams Rn Progressive Care Unit Relationship Specialty Start Date End Date Daphne Edward MD [address] [place] [address] PCP - General Family Medicine 08/13/18 documented as of this encounter
== END 2025-05-06 08:16 | disposition home or self-care (01) ==
LOC: HO.US 08:15
PROVIDERS: PCP Internal Medicine; Visit Provider General Practice
DX: R10.11 Right upper quadrant pain (principal)
CPT/HCPCS: 76705

== ENCOUNTER 2025-09-21 12:49 | Outpatient (REF) | payer MEDICARE, MEDICAID, SELFPAY ==
[2025-09-21 16:04] LABS: Folate 10.7 ng/mL (> or = 4.0); Vitamin B12 386 pg/mL (200-900)
[2025-09-21 17:14] LABS: Alanine Aminotransferase 14 U/L (0-31); Albumin Level 4.3 g/dL (3.5-5.0); Alkaline Phosphatase 99 U/L (39-117); Aspartate Amino Transferase 19 U/L (5-31); Total Protein 7.6 g/dL (6.5-8.0)
[2025-09-26 16:34] LABS: Vitamin D 25-OH, D2 <4 ng/mL; Vitamin D 25-OH, D3 23 ng/mL; Vitamin D 25-OH, Total 23 ng/mL (30-100)
[2025-09-28 23:07] LABS: FIB-ALT 12 U/L (6-29); FIB-Alpha-2-Macroglobulin 202 mg/dL (106-279); FIB-Apolipoprotein A1 177 mg/dL (101-198); FIB-GGT 24 U/L (3-65); FIB-Haptoglobin 277 mg/dL (43-212); FIB-Total Bilirubin 0.2 mg/dL (0.2-1.2); Liver Fibrosis Score 0.07; Liver Fibrosis Stage F0; Nec Inflam Act Grade A0; Nec Inflam Act Score 0.02
== END 2025-09-21 12:50 | disposition home or self-care (01) ==
LOC: HO.LAB 12:49
PROVIDERS: PCP Internal Medicine; Visit Provider Nurse Practitioner Family
DX: K76.0 Fatty (change of) liver, not elsewhere classified (principal); E55.9 Vitamin D deficiency, unspecified; R74.01 Elevation of levels of liver transaminase levels; R19.7 Diarrhea, unspecified
CPT/HCPCS: 36415; 80076; 81596; 82306; 82607; 82746; 86364; 99202

== ENCOUNTER 2025-09-21 12:49 | Outpatient (AMB) | payer MEDICARE, MEDICAID, SELFPAY ==
--- NOTE | 2025-09-21 12:52 | MHC.OFFVIS ---
Vital Signs 09/21/25 13:22 Height 5 ft 4 in Weight 238 lb BMI 40.8 BP 122/60 Blood Pressure Location Rt brachial Position Sitting Pulse 58 Pulse Source Pulse Oximeter Pulse Oximetry (%) 97 Oxygen Delivery Method Room Air Intake Visit Reasons: MAS Intake Note: New pt for initial eval of SHELTON/Transaminitis. Abn US per PCP. CC; C.O. intermittent RUQ pain. Pt also reports that she believes she is due for colonoscopy as her last was approximately 5-6 years ago w/ hx of polypectomy. Sourcing Coordinator Required: Yes Sourcing Coordinator Services: Sourcing Coordinator Offered & Declined Accompanied by: Daughter Allergies No Known Allergies Allergy (Mild, Verified 09/21/25 12:52) N/A HPI HPI [facility]: Details: 65-year-old female with past medical history of hypertension, hyperlipidemia, hypothyroidism, polyarthralgia is here today for initial consultation. Patient was sent to us by her PCP to evaluate her liver. Ultrasound was done back in May of 2025 and increase echogenicity found. Patient had normal liver enzymes. Patient denies any family history of liver disease. Patient is not diabetic. Occasional right upper quadrant pain depending on what she eats. Patient is status post cholecystectomy. Denies any diarrhea. Denies any dyspepsia, dysphagia or odynophagia. Denies any melena, hematochezia, unintentional weight loss or ribbon like stools. Significant weight gain in the past few years. Last colonoscopy about 5-6 years ago. PFSH Medical History Hx of thyroid nodule Hx of adenomatous colonic polyps Hx of osteoarthritis Hx of hyperlipidemia Hx of obesity Hx of essential hypertension History of arthritis Surgical History (Updated 09/21/25 @ 13:23 by JENNIFER Coleman) H/O colonoscopy S/P thyroidectomy Hx of cholecystectomy Family History Mother Diabetes Family/Other HTN (hypertension) Social History Alcohol intake: never Review of Systems Const Denies weight gain and Denies weight loss ENT Reports no additional complaints, Denies dysphagia and Denies odynophagia Card Reports no additional complaints Resp Reports no additional complaints GI Reports abdominal pain (Occasional RUQ), Denies belching, Denies melena, Denies bloating, Denies change in bowel habits, Denies dysphagia, Denies excessive flatus, Denies dyspepsia, Denies heartburn, Denies diarrhea, Denies loose stools, Denies nausea, Denies odynophagia and Denies vomiting Reports no additional complaints Musc Reports no additional complaints Neuro Reports no additional complaints Psych Reports no additional complaints Endo Reports no additional complaints Physical Exam Vital Signs: Last Vital Signs Pulse 58 09/21/25 13:22 BP 122/60 09/21/25 13:22 Pulse Ox 97 09/21/25 13:22 Oxygen Delivery Method Room Air 09/21/25 13:22 BMI result Body Mass Index 40.8 Const General: healthy appearing and no acute distress Nutritional Appearance: obese Orientation/consciousness: patient oriented x3 Resp Effort & Inspection: normal respiratory effort, able to speak in complete sentences, no tracheal deviation and symmetric chest movement Auscultation: clear to auscultation bilaterally Cardio Rate: regular rate GI Inspection: Yes normal to inspection, No distended and Yes obesity Palpation (GI): Soft to palpation, not firm, nontender and No hepatosplenomegaly present Auscultation: normal bowel sounds General: Yes no CVA tenderness Back/Spine/Pelvis Back: no CVA tenderness Skin General skin exam: elasticity normal, turgor normal and dry skin Neuro General: patient oriented x3 Psych Appearance: grossly normal Mental Status: mental status grossly normal Results Reviewed Results Reviewed: ABDOMINAL ULTRASOUND 05/06/2025 Findings: Visualized pancreas is normal. Tail obscured by bowel gas. Liver is normal in size and coarsened echotexture. Right lobe length 16.4 cm. No focal hepatic masses. Common duct 5.5 mm diameter. Post cholecystectomy. Main portal vein antegrade. Right kidney measures, 9.4 cm in length. Normal cortical width and echotexture. No hydronephrosis calculus or mass. Impression: 1. Post cholecystectomy 2. Coarse hepatic echotexture reflecting hepatic steatosis or diffuse hepatocellular disease. No focal hepatic lesions 3. No biliary dilatation Assessment & Plan Assessment & Plan (1) NAFL (nonalcoholic fatty liver): Code(s): K76.0 - Fatty (change of) liver, not elsewhere classified Plan Will check transglutaminase, liver panel as well as liver fibrosis panel. Will recheck ultrasound with elastography. Discussed with patient low-fat, low carb, low sodium and high protein diet. Recommend weight loss. Patient will report in 3 months we will discuss going for colonoscopy. Patient is agreeable to current plan of care and verbalizes understanding of instructions. She was given the opportunity to ask questions and all questions answered. Thank you for allowing me to participate in her care Orders: Orders Transglutaminase IgA 09/21/25 R10.9 - Unspecified abdominal pain Vitamin D 25-OH (D2 and D3) 09/21/25 E55.9 - Vitamin D deficiency, unspecified Liver Panel 09/21/25 R74.01 - Elevation of levels of liver transaminase levels US abdomen mcnair w elastography 09/21/25 K76.0 - Fatty (change of) liver, not elsewhere classified Vitamin B12 and Folate 09/21/25 R19.7 - Diarrhea, unspecified Liver Fibrosis Pnl 09/21/25 K76.0 - Fatty (change of) liver, not elsewhere classified Medications: Refilled cholecalciferol (vitamin D3) 50 mcg PO DAILY 90 caps 1RF Coding Level of Care Code New Pt Level 3 (87813) Diagnoses NAFL (nonalcoholic fatty liver) K76.0 Time Spent (min) 40 Comment 30 minutes spent with patient and additional 10 minutes spent reviewing her records
[2025-09-21 13:22] VITALS: BP 122/60; PULSE 58; O2SAT 97; BMI 40.8
--- OUTSIDE RECORDS SUMMARY | 2025-09-21 16:24 | XMS_ITS | Encounter Summary ---
Author Organization [employer] Address [address] [facility] 7t [place] [address] Care Team Providers Care Director Fixed Income Name Role Phone Daphne Edward MD Primary Care Provide r Reason for Visit * Reason Comments Med Refill Encounter Details Date Type Department Care Team ([facility] Contact Info) Description 09/18/[address] [facility] MEDICINE [address] [place] [address] Daphne Edward MD [address] [place] [address] Social History Tobacco Use Types Packs/Day Years [...] Care Team (Late st Contact Info) Description 10/21/2025 8:45 AM EST Office Visit [facility] ADULT DENTAL [address] [place] [address] Ashley Martin documented as of this encounter Visit Diagnoses Not on filedocumented in this encounter Additional Health Concerns Assessment Noted Time PHQ-9 Depression Total Score: 0 09/22/20 24 10:47 AM EDT documented as of this encounter Care Teams Director Fixed Income Relationship Specialty Start Date End Date Daphne Edward MD [address] [place] [address] PCP - General Family Medicine 08/13/18 documented as of this encounter
--- OUTSIDE RECORDS SUMMARY | 2025-09-21 16:24 | XMS_ITS | Encounter Summary ---
Author Organization [employer] Address [address] [place] [address] 7t [place] [address] Care Team Providers Care Clerical Specialist Name Role Phone Daphne Edward MD Primary Care Provide r Encounter Details Date Type Department Care Team (Latest Contact Info) Description 01/03/2022 Abstract [facility] CONVERSIONS Dental, Provider, DDS Social History Tobacco [...] Care Team ( st Contact Info) Description 10/21/2025 8:45 AM EST Office Visit [facility] ADULT DENTAL [address] [place] [address] Ashley Martin documented as of this encounter Visit Diagnoses Not on filedocumented in this encounter Care Teams Clerical Specialist Relationship Specialty Start Date End Date Daphne Edward MD [address] [place] [address] PCP - General Family Medicine 08/13/18 documented as of this encounter
--- OUTSIDE RECORDS SUMMARY | 2025-09-21 16:24 | XMS_ITS | Encounter Summary ---
Author Organization [employer] Address [address] [facility] 7t [place] [address] Care Team Providers Care Sludge Control Operator Name Role Phone Daphne Edward MD Primary Care Provide r Reason for Visit * Reason Comments Med Refill Encounter Details Date Type Department Care Team ([facility] st Contact Info) Description 03/13/2025 Refill [facility] MEDICINE [address] [place] [address] Daphne Edward MD [address] [place] [address] HTN (hypertension), benign Social History Tobacco Use Types Packs/Day Years [...] Description 10/21/2025 8:45 AM EST Office Visit [facility] ADULT DENTAL [address] [place] [address] Ashley Martin documented as of this encounter Visit Diagnoses Diagnosis HTN (hypertension), benign Essential hypertension, benign documented in this encounter Additional Health Concerns Assessment Noted Time PHQ-9 Depression Total Score: 0 09/22/20 24 10:47 AM EDT documented as of this encounter Care Teams Sludge Control Operator Relationship Specialty Start Date End Date Daphne Edward MD [address] [place] [address] PCP - General Family Medicine 08/13/18 documented as of this encounter
--- OUTSIDE RECORDS SUMMARY | 2025-09-21 16:24 | XMS_ITS | Encounter Summary ---
Author Organization [employer] Address [address] [place] [address] 7 [place] [address] Care Team Providers Care Pilot Manager Name Role Phone Daphne Edward MD Primary Care Provide r Reason for Visit * Reason Comments Med Refill Encounter Details Date Type Department Care Team ([facility] Contact Info) Description 09/21/[address] [facility] MEDICINE [address] [place] [address] Daphne Edward MD [address] [place] [address] Post-surgical hypothyroidism Social History Tobacco Use Types [...] Upcoming Encounters Date Type Department Care Team ([facility] Contact Info) Description 10/21/2025 8:45 AM EST Office Visit [facility] ADULT DENTAL [address] [place] [address] Ashley Martin documented as of this encounter Visit Diagnoses Diagnosis Post-surgical hypothyroidism Postsurgical hypothyroidism documented in this encounter Care Teams Pilot Manager Relationship Specialty Start Date End Date Daphne Edward MD [address] [place] [address] PCP - General Family Medicine 08/13/18 documented as of this encounter
--- OUTSIDE RECORDS SUMMARY | 2025-09-21 16:24 | XMS_ITS | Encounter Summary ---
Author Organization [employer] [facility] Address [address] [place] [address] 7 [place] [address] Care Team Providers Care Rotary Saw Operator Name Role Phone Daphne Edward MD Primary Care Provide r Encounter Details Date Type Department Care Team (Late st Contact Info) Description 08/21/2023 Orders Only [facility] MEDICINE [address] [place] [address] Provider, [place], Social History Tobacco Use Types [...] Description 10/21/2025 8:45 AM EST Office Visit [facility] ADULT DENTAL [address] [place] [address] Ashley Martin documented as of this encounter Procedures Procedure Name Priority Date/Time Associated Diagnosis Comments HM COLONOSCOPY Routine 09/23/2018 documented in this encounter Results * Hm Colonoscopy (09/23/2018) Historical Provider HEALTH MAINTENANCE Final Result documented in this encounter Visit Diagnoses Not on filedocumented in this encounter Care Teams Rotary Saw Operator Relationship Specialty Start Date End Date Daphne Edward MD [address] [place] [address] PCP - General Family Medicine 08/13/18 documented as of this encounter
--- OUTSIDE RECORDS SUMMARY | 2025-09-21 16:24 | XMS_ITS | Encounter Summary ---
Author Organization [employer] Address [address] [place] [address] 7 [place] [address] Care Team Providers Care Principal Quality Engineer Name Role Phone Daphne Edward MD Primary Care Provide r Reason for Visit * Reason Onset Date Comments Nurse Triage 03/01/2025 Encounter Details Date Type Department Care Team ([facility] st Contact Info) Description 03/01/2025 Telephone [facility] MEDICINE [address] [place] [address] Daphne Edward MD [address] [place] [address] Nurse Triage Social History Tobacco Use Types [...] 03/01/2025 10:52 AM EDT Triage call with [facility] [place] [id number]. Pt reports abdominal pain to the right [...] You become worse * Telephone Encounter - Tyson Margarito - 03/01/2025 10:10 AM EDT Symptom: Abdominal Pain - Female - Not Outcome: Schedule an urgent appointment (within 4 hours) or talk to a nurse or provider soon Reason: Getting worse The caller accepted this outcome. documented in this encounter Plan of Treatment Upcoming Encounters Date Type Department Care Team (Late st Contact Info) Description 10/21/2025 8:45 AM EST Office Visit [facility] ADULT DENTAL [address] [place] [address] Ashley Martin documented as of this encounter Visit Diagnoses Not on filedocumented in this encounter Additional Health Concerns Assessment Noted Time PHQ-9 Depression Total Score: 0 09/22/20 24 10:47 AM EDT documented as of this encounter Care Teams Principal Quality Engineer Relationship Specialty Start Date End Date Daphne Edward MD [address] [place] [address] PCP - General Family Medicine 08/13/18 documented as of this encounter
--- OUTSIDE RECORDS SUMMARY | 2025-09-21 16:24 | XMS_ITS | Encounter Summary ---
Author Organization [employer] Address [address] [facility] 7t [place] [address] Care Team Providers Care Cut In Station Operator Name Role Phone Daphne Edward MD Primary Care Provide r Reason for Visit * Reason Comments Med Refill Encounter Details Date Type Department Care Team ([facility] st Contact Info) Description 04/07/2025 Refill [facility] MEDICINE [address] [place] [address] Daphne Edward MD [address] [place] [address] Hypertension, unspecified type Social History Tobacco Use [...] Description 10/21/2025 8:45 AM EST Office Visit [facility] ADULT DENTAL [address] [place] [address] Ashley Martin documented as of this encounter Visit Diagnoses Diagnosis Hypertension, unspecified type documented in this encounter Additional Health Concerns Assessment Noted Time PHQ-9 Depression Total Score: 0 09/22/20 24 10:47 AM EDT documented as of this encounter Care Teams Cut In Station Operator Relationship Specialty Start Date End Date Daphne Edward MD [address] [place] [address] PCP - General Family Medicine 08/13/18 documented as of this encounter
--- OUTSIDE RECORDS SUMMARY | 2025-09-21 16:24 | XMS_ITS | Encounter Summary ---
Author Organization [email or web address] Address [address] [facility] 7t [place] [address] Care Team Providers Care Osteology Teacher Name Role Phone Daphne Edward MD Primary Care Provide r Reason for Visit * Reason Comments Med Refill Encounter Details Date Type Department Care Team ([facility] Contact Info) Description 02/04/2025 Refill [facility] MEDICINE [address] [place] [address] Daphne Edward MD [address] [place] [address] Social History Tobacco Use Types Packs/Day Years [...] Description 10/21/2025 8:45 AM EST Office Visit [facility] ADULT DENTAL [address] [place] [address] Ashley Martin documented as of this encounter Visit Diagnoses Not on filedocumented in this encounter Additional Health Concerns Assessment Noted Time PHQ-9 Depression Total Score: 0 09/22/20 24 10:47 AM EDT documented as of this encounter Care Teams Osteology Teacher Relationship Specialty Start Date End Date Daphne Edward MD [address] [place] [address] PCP - General Family Medicine 08/13/18 documented as of this encounter
--- OUTSIDE RECORDS SUMMARY | 2025-09-21 16:24 | XMS_ITS | Encounter Summary ---
Author Organization [employer] Address [address] [place] [address] 7 [place] [address] Care Team Providers Care Hydraulic Repairer Name Role Phone Daphne Edward MD Primary Care Provide r Reason for Visit * Reason Comments Med Refill Encounter Details Date Type Department Care Team ([facility] Contact Info) Description 08/20/[address] [facility] MEDICINE [address] [place] [address] Daphne Edward MD [address] [place] [address] Post-surgical hypothyroidism Social History Tobacco Use Types [...] Upcoming Encounters Date Type Department Care Team ([facility] Contact Info) Description 10/21/2025 8:45 AM EST Office Visit [facility] ADULT DENTAL [address] [place] [address] Ashley Martin documented as of this encounter Visit Diagnoses Diagnosis Post-surgical hypothyroidism Postsurgical hypothyroidism documented in this encounter Care Teams Hydraulic Repairer Relationship Specialty Start Date End Date Daphne Edward MD [address] [place] [address] PCP - General Family Medicine 08/13/18 documented as of this encounter
--- OUTSIDE RECORDS SUMMARY | 2025-09-21 16:24 | XMS_ITS | Encounter Summary ---
Author Organization [employer] Address [address] [place] [address] 7t [place] [address] Care Team Providers Care Health Unit Supervisor Name Role Phone Daphne Edward MD Primary Care Provide r Encounter Details Date Type Department Care Team (Late st Contact Info) Description 05/27/2023 Orders Only [facility] CHC MED & PEDS [address] [place] [address] Jacqueline Acevedo LPN Social History Tobacco Use [...] Description 10/21/2025 8:45 AM EST Office Visit [facility] ADULT DENTAL [address] [place] [address] Ashley Martin documented as of this encounter Visit Diagnoses Not on filedocumented in this encounter Care Teams Health Unit Supervisor Relationship Specialty Start Date End Date Daphne Edward MD [address] [place] [address] PCP - General Family Medicine 08/13/18 documented as of this encounter
--- OUTSIDE RECORDS SUMMARY | 2025-09-21 16:24 | XMS_ITS | Encounter Summary ---
Author Organization [employer] Address [address] [place] [address] 7t [place] [address] Care Team Providers Care Aquarist Name Role Phone Daphne Edward MD Primary Care Provide r Encounter Details Date Type Department Care Team (Latest Contact Info) Description 03/13/2019 Abstract [facility] CONVERSIONS Dental, Provider, DDS Social History [...] Description 10/21/2025 8:45 AM EST Office Visit [facility] ADULT DENTAL [address] [place] [address] Ashley Martin documented as of this encounter Visit Diagnoses Not on filedocumented in this encounter Care Teams Aquarist Relationship Specialty Start Date End Date Daphne Edward MD [address] [place] [address] PCP - General Family Medicine 08/13/18 documented as of this encounter
--- OUTSIDE RECORDS SUMMARY | 2025-09-21 16:24 | XMS_ITS | Encounter Summary ---
Author Organization [employer] Address [address] [facility] 7t [place] [address] Care Team Providers Care Woodworking Bench Carpenter Name Role Phone Daphne Edward MD Primary Care Provide r Encounter Details Date Type Department Care Team ([facility] st Contact Info) Description 09/21/2025 Orders Only GENERIC EXTERNAL DATA DEPARTMENT Provider, Generic External Data Social History Tobacco Use Types Packs/Day Years [...] Visit [facility] ADULT DENTAL [address] [place] [address] Ashley Martin documented as of this encounter Procedures Procedure Name Priority Date/Time Associated Diagnosis Comments VITAMIN B12/FOLATE, SERUM PANEL Routine 09/21/2025 2:10 PM EDT documented in this encounter Results * Vitamin B12 (Cobalamin) and Folate Panel, Serum (09/21/2025 2:10 PM EDT) Vitamin B12 386 200 - 900 pg/mL [facility] Comment:NORMAL 200-900 PG/ML INDETERMINATE 160-199 PG/ML DEFICIENT < 160 PG/ML Folate 10.7 > or = 4.0 ng/mL [facility] Comment:Reference Values:> o r = 4.0 ng/mL< 4.0 ng/mL suggests folate deficiency Methotrexate, aminopterin and folinic acid(leucovorin) are chemotherapeutic agents whose molecularstructures are similar to folate; therefore, the Architectfolate assay cannot be used for patients using these drugs. 09/21/2025 2:10 PM EDT 09/21/2025 2:10 PM EDT us Generic External Data Provider LAB BLOOD ORDERAB LES Final Result [facility] [address] [place] [address] [phone] documented in this encounter Visit Diagnoses Not on filedocumented in this encounter Additional Health Concerns Assessment Noted Time PHQ-9 Depression Total Score: 0 09/22/20 24 10:47 AM EDT documented as of this encounter Care Teams Woodworking Bench Carpenter Relationship Specialty Start Date End Date Daphne Edward MD [address] [place] [address] PCP - General Family Medicine 08/13/18 documented as of this encounter
--- OUTSIDE RECORDS SUMMARY | 2025-09-21 16:24 | XMS_ITS | Encounter Summary ---
Author Organization [employer] Address [address] [place] [address] [address] [place] [address] Care Team Providers Care Solvent Mixer Name Role Phone Daphne Edward MD Primary Care Provide r Reason for Referral * Imaging (Routine) - Closed Specialty Diagnoses / Procedures Referred By Contac t Referred To Contact Radiology Diagnoses Right upper quadrant pain Procedures US Abdomen Limited Sushma Ibanez MD [address] [place] [address] Phone: tel: fax: [address] Phone: tel: fax: Referral ID Status Reason Start Date Expiration Date Visits Re quested Visits Authorized [id number] Closed 03/09/2025 03/09/2026 1 1 Encounter Details Date Type Department Care Team (Late st Contact Info) Description 03/09/2025 Orders Only [facility] [address] [place] [address] [phone] Sushma Ibanez MD [address] [place], [place] [phone] Right upper quadrant pain (Primary Dx) Social History Tobacco Use Types Packs/Day Years [...] Description 10/21/2025 8:45 AM EST Office Visit [facility] ADULT DENTAL [address] [place] [address] Ashley Martin documented as of this encounter Procedures Procedure Name Priority Date/Time Associated Diagnosis Comments US ABDOMEN LIMITED Routine 05/06/2025 11 :17 AM EDT Right upper quadrant pain documented in this encounter Results * US Abdomen Limited (05/06/2025 11:17 AM EDT) Anatomical Region Laterality Modality Abdomen Ultrasound 05/06/2025 11:1 7 AM EDT Narrative 05/06/2025 11:19 AM EDT [address] [address] Ultrasound Report Signed Patient: Alejandra Lindquist MR#: [id number] : 1960 Acct:[id number] Age/Sex: 64 / F ADM Date: 05/06/25 Loc: HO.US Attending Dr: Sushma Ibanez MD Ordering Physician: Sushma Ibanez Date of Service: 05/06/25 Procedure(s): US abdomen limited Accession Number(s): [id number] cc: Daphne Edward MD; Sushma Ibanez CLINICAL HISTORY: pain superior to prior open cholecystectomy scar US abdomen limited with color Doppler Comparison: None Findings: Visualized pancreas is normal. Tail obscured by bowel gas. Liver is normal in size and coarsened echotexture. Right lobe length 16.4 cm. No focal hepatic masses. Common duct 5.5 mm diameter. Post cholecystectomy. Main portal vein antegrade. Right kidney measures, 9.4 cm in length. Normal cortical width and echotexture. No hydronephrosis calculus or mass. Impression: 1. Post cholecystectomy 2. Coarse hepatic echotexture reflecting hepatic steatosis or diffuse hepatocellular disease. No focal hepatic lesions 3. No biliary dilatation This document has been electronically signed by: Mina Whitten MD on 05/06/2025 11:17:54 Dictated By: Mina Whitten MD Signed By: <Electronically signed by Mina Whitten MD in OV> 05/06/25 1118 DD/ 1117 TD/TT: 05/06/25 1117 Civil Engineer: Procedure Note Donotuseinterpreter, Image - 05/06/[address] [address] Ultrasound Report Signed Patient: Alejandra Lindquist ZMR#: [id number] : 8Acct:[id number] Age/Sex: 64 / FADM Date: 05/06/25 Loc: HO.US Attending Dr: Sushma Ibanez MD Ordering Physician: Sushma Ibanez Date of Service: 05/06/25 Procedure(s): US abdomen limited Accession Number(s): [id number] cc: Daphne Edward MD; Sushma Ibanez CLINICAL HISTORY: pain superior to prior open cholecystectomy scar US abdomen limited with color Doppler Comparison: None Findings: Visualized pancreas is normal. Tail obscured by bowel gas. Liver is normal in size and coarsened echotexture. Right lobe length 16.4 cm. No focal hepatic masses. Common duct 5.5 mm diameter. Post cholecystectomy. Main portal vein antegrade. Right kidney measures, 9.4 cm in length. Normal cortical width and echotexture. No hydronephrosis calculus or mass. Impression: 1. Post cholecystectomy 2. Coarse hepatic echotexture reflecting hepatic steatosis or diffuse hepatocellular disease. No focal hepatic lesions 3. No biliary dilatation This document has been electronically signed by: Mina Whitten MD on 05/06/2025 11:17:54 Dictated By: Mina Whitten MD Signed By: <Electronically signed by Mina Whitten MD in OV> 05/06/25 1118 DD/ 1117 TD/TT: 05/06/25 1117 Civil Engineer: Sushma Ibanez MD IM US PROCEDURES Edited Resul t - Final documented in this encounter Visit Diagnoses Diagnosis Right upper quadrant pain- Primary Abdominal pain, right upper quadrant documented in this encounter Additional Health Concerns Assessment Noted Time PHQ-9 Depression Total Score: 0 09/22/20 24 10:47 AM EDT documented as of this encounter Care Teams Solvent Mixer Relationship Specialty Start Date End Date Daphne Edward MD [address] [place] [phone] PCP - General Family Medicine 08/13/18 documented as of this encounter
--- OUTSIDE RECORDS SUMMARY | 2025-09-21 16:24 | XMS_ITS | Clinical Summary ---
Author Organization [employer] Address [address] [facility] 7t [place] [address] Care Team Providers Care Hosiery Knitter Name Role Phone Daphne Edward MD Primary Care Provide r Allergies Active Allergy Reactions Criticality Noted Date Comments Coconut Flavoring Agent (Non-Screening) 09/22/2024 Medications levothyroxine (Synthroid) 125 MCG tabletIndications :Postoperative hypothyroidism Take 1 tablet (125 mcg) by mouth before breakfast. 30 tablet 2 09/24/20 24 025 Active ibuprofen 600 MG tablet TAKE 1 TABLET BY MOUTH 3 TIMES DAILY FOR 20 DAYS. 60 tablet 03/29/20 25 Active lisinopril 30 MG tabletIndications :HTN (hypertension), benign TAKE 1 TABLET (30 MG) BY MOUTH IN THE MORNING 90 tablet 1 05/04/20 25 Active hydroCHLOROthiazi de (HYDRODiuril) 50 MG tablet TAKE 1 TABLET BY MOUTH EVERY DAY IN THE MORNING 90 tablet 1 06/11/20 25 Active metoprolol succinate XL (Toprol-XL) 50 MG 24 hr tabletIndications :Hypertension, unspecified type Take 1 tablet by mouth every day 90 tablet 1 07/08/20 25 Active levothyroxine (Synthroid, Levoxyl) 112 MCG tabletIndications :Postoperative hypothyroidism TAKE 1 TABLET BY MOUTH EVERY DAY BEFORE BREAKFAST 90 tablet 08/09/20 25 Active amLODIPine (Norvasc) 5 MG tablet TAKE 1 TABLET BY MOUTH EVERY DAY 90 tablet 1 09/08/20 25 Active atorvastatin (Lipitor) 20 MG tablet TAKE 1 TABLET BY MOUTH EVERY DAY 90 tablet 1 09/21/20 25 Active atorvastatin (Lipitor) 20 MG tablet TAKE 1 TABLET BY MOUTH EVERY DAY 90 tablet 1 03/24/20 025 Discontinued amLODIPine (Norvasc) 5 MG tablet TAKE 1 TABLET BY MOUTH EVERY DAY 90 tablet 1 03/29/20 025 Discontinued Active Problems Problem Noted Date Diagnosed Date [...] Encounters Date Type Department Care Team Description 09/21/2025 Orders Only GENERIC EXTERNAL DATA DEPARTMENT Provider, Generic External Data 09/18/2025 Refill [facility] [address] [place] [address] Daphne Edward MD 09/08/2025 Refill [facility] [address] [place] [address] Daphne Edward MD 08/07/2025 Refill [facility] [address] [place] [address] Sushma Ibanez MD Postoperative hypothyroidism 07/08/2025 Refill [facility] [address] [place] [address] Daphne Edward MD Hypertension, unspecified type from Last 3 Months Immunizations Immunization Administration Dates Next Due Influenza injectable quadriv [...] is your housing situation today? I have kristalzuly munson 09/22/[address] you [...] the past 12 months, has t he [employer], gas, oil or water company threatened to [...] Sign Reading Time Taken Comments Blood Pressure 132/88 04/19/2025 10:09 AM EDT Pulse 67 03/03/2025 3:39 PM EDT Temperature 36.3 C (97.3 F) 03/03/2025 3:39 PM EDT Respiratory Rate 18 03/03/2025 3:39 PM EDT [...] 8:45 AM EST Office Visit [facility] ADULT DENTAL [address] [place] [address] Ashley Martin Health Maintenance Due Date Last Done Comments CT Colonography 1960 FIT DNA/Cologuard 1960 FIT 1960 FOBT 1960 Sigmoidoscopy 1960 Hepatitis A Vaccines (1 of 2 - Risk 2-dose series) 1977 Hepatitis B Vaccines (1 of 3 - Risk 3-dose series) 2018 RSV Patients and Patients Aged 60 years or older (1 - Risk 60-74 years 1-dose series) 2018 Zoster Vaccines (2 of 3) 01/05/2019 11/10/2018 Colonoscopy 09/23/2021 09/23/2018 Colorectal Cancer Screening 09/23/2021 DTaP/Tdap/Td Vaccines (2 - Td or Tdap) 09/08/2023 09/08/2013, 02/03/2007 COVID-19 Vaccine ( season) 2025 09/22/2024, 11/28/2021, 03/14/2021, Additional history exists Influenza Vaccine (#1) 2025 , 10/19/2021, 11/28/2020, Additional history exists Alcohol/Substance Use Screening 09/22/2025 09/22/2024 Depression Screening 09/22/2025 09/22/2024, 09/22/20 24 SDOH Screening 09/22/2025 09/22/2024 Diabetes: Hemoglobin A1C 09/23/2025 024, 12/28/2021, 02/16/2021, Additional history exists Mammogram 10/05/2025 10/05/2024, 09/01, 06/17/2020, Additional history exists Dental Oral Exam 10/21/2025 04/19/2025, , 01/03/2022, Additional history exists Dental Prophylaxis 10/21/2025 04/19/2025, 0 08/19/2024, 01/03/2022, Additional history exists Tobacco Screening 04/19/2026 04/19/2025 Dental X-Ray: Bitewings 04/20/2026 04/19/20 25, 08/19/2024, 01/03/2022, Additional history exists Dental X-Ray: Full Mouth 04/20/2028 04/19/2025, 0201/2022 Lipid Panel 09/23/2029 09/23/2024, 12/28/2021 Cervical Cancer Screening Discontinued HPV/Cotest Discontinued 10/09/2018 Pneumococcal Vaccine: 50+ Years Completed 09/22/2024, 01/20/2013 Hepatitis C Screening Completed 09/23/2024 HIB Vaccines Aged Out No longer eligi ble based on patient's age to complete this topic HPV Vaccines Aged Out No longer eligi ble based on patient's age to complete this topic IPV Vaccines Aged Out No longer eligi ble based on patient's age to complete this topic Meningococcal B Vaccine Aged Out No l onger eligible based on patient's age to complete [...] SERUM PANEL Routine 09/21/2025 2:10 PM EDT PROPHYLAXIS - ADULT Routine 04/19/2025 1 0:00 AM EDT Dental plaque Dental calculus INTRAORAL - COMPLETE SERIES OF RADIOGRAPHIC IMAGES Routine 04/19/2025 10:00 AM EDT PERIODIC ORAL EVALUATION - ESTABLISHED PATIENT Routine 04/19/2025 10:00 AM EDT BI MAMMOGRAM SCREENING TOMOSYNTHESIS BILATERAL Routine 10/05/2024 3:00 PM EST Encounter for screening mammogram for malignant neoplasm of breast HEMOGLOBIN A1C Routine 09/23/2024 12:08 PM EDT Essential hypertension Postoperative hypothyroidism LIPID PANEL, STANDARD Routine 09/23/2024 12:08 PM EDT Essential hypertension Postoperative hypothyroidism HEPATITIS C AB W/REFL TO HCV RNA, QN, PCR Routine 09/23/2024 12:05 PM EDT Essential hypertension Postoperative hypothyroidism ZZZ HISTORICAL HPV MRNA E6/E7 Routine 10/09/2018 10:30 AM EST HM COLONOSCOPY Routine 09/23/2018 from Last 3 Months or Most Recently Relevant to Health Maintenance Results * Vitamin B12 (Cobalamin) and Folate Panel, Serum (09/21/2025 2:10 PM EDT) Vitamin B12 386 200 - 900 pg/mL [facility] Comment:NORMAL 200-900 PG/ML INDETERMINATE 160-199 PG/ML DEFICIENT < 160 PG/ML Folate 10.7 > or = 4.0 ng/mL [facility] Comment:Reference Values:> o r = 4.0 ng/mL< 4.0 ng/mL suggests folate deficiency Methotrexate, aminopterin and folinic acid(leucovorin) are chemotherapeutic agents whose molecularstructures are similar to folate; therefore, the Architectfolate assay cannot be used for patients using these drugs. 09/21/2025 2:10 PM EDT 09/21/2025 2:10 PM EDT Generic External Data Provider LAB BLOOD ORDERAB LES Final Result [facility] [address] [place] [phone] * BI Mammogram Screening Tomosynthesis Bilateral (10/05/2024 3:00 PM EST) Anatomical Region Laterality Modality Breast Bilateral Mammography 10/05/2024 3:00 PM EST Narrative 10/14/2024 12:23 PM EST [facility] [address] [place] [address] Mammography Report Signed Patient: Alejandra Lindquist MR#: [id number] : 1960 Acct:[id number] Age/Sex: 64 / F ADM Date: 10/05/24 Loc: PRIMO Attending Dr: Daphne Garrido MD Ordering Physician: Daphne Edward MD Results: 1Negative Date of Service: 10/05/24 Follow Up: 1 Year From Orig inal Mammogram Procedure(s): MM tomosynthesis screening BI Accession Number(s): [id number] cc: Daphne Edward MD EXAMINATION: MM SCREENING [...] by: Laura Scott DO 10/14/2024 12:19 PM [facility] Dictated By: Laura Scott DO Signed By: <Electronically signed by Laura Scott DO in OV> 10/14/24 1219 DD/ 1500 TD/TT: 10/05/24 1524 [employer]: Procedure Note Donotuseinterpreter, Image - 10/14/2024 [facility] [address] [place], [place] [address] Mammography Report Signed Patient: Alejandra Lindquist ZMR#: [id number] : 8Acct:[id number] Age/Sex: 64 / FADM Date: 10/05/24 Loc: HO.MAMMO Attending Dr: Daphne Garrido MD Ordering Physician: Daphne Edward MDResults: 1Negative Date of Service: 10/05/24Follow Up: 1 Year From Orig inal Mammogram Procedure(s): MM tomosynthesis screening BI Accession Number(s): [id number] cc: Daphne Edward MD EXAMINATION: MM SCREENING [...] 10/14/24 1219 DD/ 1500 TD/TT: 10/05/24 1524 [employer]: us Daphne Garrido MD IMG BI PROCEDURES Fin al Result * (ABNORMAL) Hemoglobin A1c (09/23/2024 12:08 PM EDT) Hemoglobin A1c 6.1(H) <6.0 % [facility] Comment:Hemoglobin A1C Refer ence Range Adults: 4.8 - 6.0 % Non diabetic: < 6.0 % Goal: < 7.0 %Additional Action Suggested: > 8.0 %Note: Hemoglobin A1c results are invalid for patients with abnormal amounts of HbF. Blood transfusions may impact the HbA1c concentration in the patient sample. Estimated Average Glucose 128 mg/dL [facility] Comment:eAG = Estimated ave rage glucose which is %A1C expressed asaverage glucose, using the formula of the V6T-MpbjoooMlwxogh Glucose study (ADAG), Diabetes Care, Vol.31,#8,Jul. 2007 Blood Venous blood specimen / Unknown 09/23/2024 12:08 PM EDT 09/23/2024 1:24 PM EDT us Daphne Garrido MD LAB BLOOD ORDERABLES Final Result Performing Organization Address City/[facility]/ZIP Co de Phone Number [facility] [address] [place] [phone] * Lipid Panel, Standard (09/23/2024 12:08 PM EDT) Triglycerides 104 <150 mg/dL [facility] Comment:Desirable Triglyceri de: less than 150 mg/dLBorderline High Triglyceride 150-199 mg/dLHigh Triglyceride: 200-499 mg/dLVery High Triglyceride: greater than or equal to 5OO mg/dL Cholesterol 149 <200 mg/dL [facility] Comment:Desirable Cholestero l: less than 200 mg/dLBorderline High Cholesterol: 200-239 mg/dLHigh Cholesterol: greater than 239 mg/dL LDL Cholesterol Calculated 81 <100 mg/dL [facility] Comment:Desirable LDL: less than 100 mg/dLNear Optimal/Above Optimal LDL: 110- 129 mg/dLBorderline High LDL: 130-159 mg/dLHigh LDL: 160-189 mg/dLVery High LDL: greater than or equal to 190 mg/dL HDL Cholesterol 48 >40 mg/dL [facility] Comment:Desirable HDL: great er than 40 mg/dL Note: This HDL assay may give artificially low results in patients with liver disease. Blood Venous blood specimen / Unknown 09/23/2024 12:08 PM EDT 09/23/2024 1:24 PM EDT us Daphne Garrido MD LAB BLOOD ORDERABLES Final Result Performing Organization Address City/[facility]/ZIP Co de Phone Number [facility] [address] [place] [phone] * Hepatitis C Antibody with Reflex to HCV, RNA, Quantitative, Real-Time PCR (09/23/2024 12:05 PM EDT) Hepatitis C Antibody Nonreactive Nonreactive [facility] Comment:Antibodies to HCV no t detected; does not exclude early acuteHCV infection. Blood Venous blood specimen / Unknown 09/23/2024 12:05 PM EDT 09/23/2024 1:24 PM EDT us Daphne Garrido MD LAB BLOOD ORDERABLES Final Result Performing Organization Address City/[facility]/ZIP Co de Phone Number [facility] [address] [place] [phone] * HPV mRNA E6/E7 (10/09/2018 10:30 AM EST) HPV mRNA E6/E7 Not Detected NOT DETECTED [facility] Comment: This test was performed using the APTIMA(R) HPV Assay ([employer] This assay detects E6/E7 viral messenger RNA (mRNA) from 14 high-risk HPV types (16,18,31,33,35,39,45,51, 52,56,58,59,66,68). For additional information please refer to: http://education.[employer]/faq/LPQ246o1 (This link is being provided for informational/ educational purposes only.) The analytical performance characteristics of this assay have been determined by [employer] [place], [place]. The modifications have not been cleared or approved by the FDA. This assay has been validated pursuant to the CLIA regulations and is used for clinical purposes. Test Performed by [facility], [facility], [address] [place] [address] Ranulfo Isbell M.D., Ph.D., Director of Laboratories , CLIA [id number] Please note: Effective 08/13/2016, HPV testing will be performed using [employer]'s APTIMA test which targets mRNA. Detecting mRNA instead of DNA, as in older methods, offers significant improvements in specificity. 10/09/2018 10:3 0 AM EST us Rocío Bob CNM HISTORICAL/NON ORDERABLE LABS Final Result Performing Organization Address City/[facility]/ZIP Co de Phone Number [facility] [address] [place], [place] [phone], * Hm Colonoscopy (09/23/2018) us Historical Provider MD HEALTH MAINTENANCE Final Result from Last 3 Months or Most Recently Relevant to Health Maintenance Insurance [facility] STANDARD MEDICARE DENTAL-[facility] [place] [address] [place] [address] Care Teams Hosiery Knitter Relationship Specialty Start Date End Date Daphne Edward MD [address] [place] [phone] PCP - General Family Medicine 08/13/18
== END 2025-09-21 13:42 | disposition home or self-care (01) ==
LOC: HO.HGI 12:50
PROVIDERS: PCP Internal Medicine; Visit Provider Nurse Practitioner Family
DX: K76.0 Fatty (change of) liver, not elsewhere classified (principal)
CPT/HCPCS: 99203

== ENCOUNTER 2025-10-07 09:00 | Outpatient (REF) | payer MEDICARE, MEDICAID, SELFPAY ==
--- OUTSIDE RECORDS SUMMARY | 2025-10-07 09:44 | XMS_ITS | Encounter Summary ---
Author Organization [employer] Address [address] [place] [address] 7[address] [place] [address] Care Team Providers Care Academic Services Coordinator Name Role Phone Daphne Edward MD Primary Care Provide r Reason for Referral * Imaging (Routine) - Closed Specialty Diagnoses / Procedures Referred By Contac t Referred To Contact Radiology Diagnoses Right upper quadrant pain Procedures US Abdomen Limited Sushma Ibanez MD [address] [place] [address] Phone: tel: fax: [address] Phone: tel: fax: Referral ID Status Reason Start Date Expiration Date Visits Re quested Visits Authorized [id number] Closed 03/09/2025 03/09/2026 1 1 Encounter Details Date Type Department Care Team (Late st Contact Info) Description 03/09/2025 Orders Only [facility] MEDICINE [address] [place] [phone] Sushma Ibanez MD [address] [place], [place] [phone] Right upper quadrant pain (Primary Dx) Social [...] Description 10/21/2025 8:45 AM EST Office Visit [facility] ADULT DENTAL [address] [place] [address] Ashley Martin documented as of this encounter Procedures Procedure Name Priority Date/Time Associated Diagnosis Comments US ABDOMEN LIMITED Routine 05/06/2025 11 :17 AM EDT Right upper quadrant pain documented in this encounter Results * US Abdomen Limited (05/06/2025 11:17 AM EDT) Anatomical Region Laterality Modality Abdomen Ultrasound 05/06/2025 11:1 7 AM EDT Narrative 05/06/2025 11:19 AM EDT [address] [address] Ultrasound Report Signed Patient: Alejandra Lindquist MR#: [id number] : 1960 Acct:[id number] Age/Sex: 64 / F ADM Date: 05/06/25 Loc: HO.US Attending Dr: Sushma Ibanez MD Ordering Physician: Sushma Ibanez Date of Service: 05/06/25 Procedure(s): US abdomen limited Accession Number(s): [id number] cc: Daphne Edward MD; Sushma Ibanez CLINICAL [...] 05/06/25 1118 DD/ 1117 TD/TT: 05/06/25 1117 [employer] Blender: Procedure Note Donotuseinterpreter, Image - 05/06/[address] [address] Ultrasound Report Signed Patient: Alejandra Lindquist ZMR#: [id number] : 8Acct:[id number] Age/Sex: 64 / FADM Date: 05/06/25 Loc: HO.US Attending Dr: Sushma Ibanez MD Ordering Physician: Sushma Ibanez Date of Service: 05/06/25 Procedure(s): US abdomen limited Accession Number(s): [id number] cc: Daphne Edward MD; Sushma Ibanez CLINICAL [...] 05/06/25 1118 DD/ 1117 TD/TT: 05/06/25 1117 Priming Powder Premix Blender: Sushma Ibanez MD IM US PROCEDURES Edited Resul t - Final documented in this encounter Visit Diagnoses Diagnosis Right upper quadrant pain- Primary Abdominal pain, right upper quadrant documented in this encounter Additional Health Concerns Assessment Noted Time PHQ-9 Depression Total Score: 0 09/22/20 24 10:47 AM EDT documented as of this encounter Care Teams Academic Services Coordinator Relationship Specialty Start Date End Date Daphne Edward MD [address] [place] [phone] PCP - General Family Medicine 08/13/18 documented as of this encounter
--- OUTSIDE RECORDS SUMMARY | 2025-10-07 09:44 | XMS_ITS | Encounter Summary ---
Author Organization [employer] Address [address] [place] [address] 7t [place] [address] Care Team Providers Care Salon Supervisor Name Role Phone Daphne Edward MD Primary Care Provide r Encounter Details Date Type Department Care Team (Late st Contact Info) Description 05/27/2023 Orders Only [facility] MED & PEDS [address] [place] [address] Jacqueline Acevedo LPN Social History Tobacco Use [...] 8:45 AM EST Office Visit [facility] ADULT DENTAL [address] [place] [address] Ashley Martin documented as of this encounter Visit Diagnoses Not on filedocumented in this encounter Care Teams Salon Supervisor Relationship Specialty Start Date End Date Daphne Edward MD [address] [place] [address] PCP - General Family Medicine 08/13/18 documented as of this encounter
--- OUTSIDE RECORDS SUMMARY | 2025-10-07 09:44 | XMS_ITS | Encounter Summary ---
Author Organization [employer] Address [address] [facility] 7t [place] [address] Care Team Providers Care Die Sinker Name Role Phone Daphne Edward MD Primary Care Provide r Reason for Visit * Reason Comments Med Refill Encounter Details Date Type Department Care Team ([facility] Contact Info) Description 02/04/2025 Refill [facility] [address] [place] [address] Daphne Edward MD [address] [place] [address] Social History Tobacco Use Types Packs/Day Years [...] Description 10/21/2025 8:45 AM EST Office Visit [facility] ADULT DENTAL [address] [place] [address] Ashley Martin documented as of this encounter Visit Diagnoses Not on filedocumented in this encounter Additional Health Concerns Assessment Noted Time PHQ-9 Depression Total Score: 0 09/22/20 24 10:47 AM EDT documented as of this encounter Care Teams Die Sinker Relationship Specialty Start Date End Date Daphne Edward MD [address] [place] [address] PCP - General Family Medicine 08/13/18 documented as of this encounter
--- OUTSIDE RECORDS SUMMARY | 2025-10-07 09:44 | XMS_ITS | Encounter Summary ---
Author Organization [employer] Address [address] [place] [address] 7t [place] [address] Care Team Providers Care Pattern Drum Maker Name Role Phone Daphne Edward MD Primary [...] [facility] ADULT DENTAL [address] [place] [address] Ashley Martin documented as of this encounter Visit Diagnoses Not on filedocumented in this encounter Care Teams Pattern Drum Maker Relationship Specialty Start Date End Date Daphne Edward MD [address] [place] [address] PCP - General Family Medicine 08/13/18 documented as of this encounter
--- OUTSIDE RECORDS SUMMARY | 2025-10-07 09:44 | XMS_ITS | Encounter Summary ---
Author Organization [employer] Address [address] [facility] 7t [place] [address] Care Team Providers Care Flower Shop Laborer/Designer Name Role Phone Daphne Edward MD Primary Care Provide r Reason for Visit * Reason Comments Med Refill Encounter Details Date Type Department Care Team ([facility] st Contact Info) Description 03/13/2025 Refill [facility] [address] [place] [address] Daphne Edward MD [address] [place] [address] HTN (hypertension), benign Social History Tobacco Use [...] Description 10/21/2025 8:45 AM EST Office Visit [facility] ADULT DENTAL [address] [place] [address] Ashley Martin documented as of this encounter Visit Diagnoses Diagnosis HTN (hypertension), benign Essential hypertension, benign documented in this encounter Additional Health Concerns Assessment Noted Time PHQ-9 Depression Total Score: 0 09/22/20 24 10:47 AM EDT documented as of this encounter Care Teams Flower Shop Laborer/Designer Relationship Specialty Start Date End Date Daphne Edward MD [address] [place] [address] PCP - General Family Medicine 08/13/18 documented as of this encounter
--- OUTSIDE RECORDS SUMMARY | 2025-10-07 09:44 | XMS_ITS | Encounter Summary ---
Author Organization [employer] Address [address] [place] [address] 7 [place] [address] Care Team Providers Care Coal Picker Name Role Phone Daphne Edward MD Primary Care Provide r Reason for Visit * Reason Onset Date Comments Nurse Triage 03/01/2025 Encounter Details Date Type Department Care Team ([facility] st Contact Info) Description 03/01/2025 Telephone [facility] [address] [place] [address] Daphne Edward MD [address] [place] [address] Nurse Triage Social History Tobacco Use Types [...] 03/01/2025 10:52 AM EDT Triage call with [facility] [id number]. Pt reports abdominal pain to the right [...] Description 10/21/2025 8:45 AM EST Office Visit [facility] ADULT DENTAL [address] [place] [address] Ashley Martin documented as of this encounter Visit Diagnoses Not on filedocumented in this encounter Additional Health Concerns Assessment Noted Time PHQ-9 Depression Total Score: 0 09/22/20 24 10:47 AM EDT documented as of this encounter Care Teams Coal Picker Relationship Specialty Start Date End Date Daphne Edward MD [address] [place] [address] PCP - General Family Medicine 08/13/18 documented as of this encounter
--- OUTSIDE RECORDS SUMMARY | 2025-10-07 09:44 | XMS_ITS | Encounter Summary ---
Author Organization [employer] Address [address] [place] [address] 7 [place] [address] Care Team Providers Care Accounting File Clerk Name Role Phone Daphne Edward MD Primary Care Provide r Reason for Visit * Reason Comments Med Refill Encounter Details Date Type Department Care Team ([facility] Contact Info) Description 09/21/2023 Refill [facility] [address] [place] [address] Daphne Edward MD [address] [place] [address] Post-surgical hypothyroidism Social History Tobacco Use Types [...] Upcoming Encounters Date Type Department Care Team ([facility] Contact Info) Description 10/21/2025 8:45 AM EST Office Visit [facility] ADULT DENTAL [address] [place] [address] Aslhey Martin documented as of this encounter Visit Diagnoses Diagnosis Post-surgical hypothyroidism Postsurgical hypothyroidism documented in this encounter Care Teams Accounting File Clerk Relationship Specialty Start Date End Date Daphne Edward MD [address] [place] [phone] PCP - General Family Medicine 08/13/18 documented as of this encounter
--- OUTSIDE RECORDS SUMMARY | 2025-10-07 09:44 | XMS_ITS | Encounter Summary ---
Author Organization [employer] Address [address] [facility] 7t [place] [address] Care Team Providers Care Detail Maker And Fitter Name Role Phone Daphne Edward MD Primary Care Provide r Reason for Visit * Reason Comments Med Refill Encounter Details Date Type Department Care Team ([facility] st Contact Info) Description 04/07/2025 Refill [facility] [address] [place] [address] Daphne Edward MD [address] [place] [address] Hypertension, unspecified type Social History Tobacco Use [...] [facility] [address] [place] [address] Ashley Martin documented as of this encounter Visit Diagnoses Diagnosis Hypertension, unspecified type documented in this encounter Additional Health Concerns Assessment Noted Time PHQ-9 Depression Total Score: 0 09/22/20 24 10:47 AM EDT documented as of this encounter Care Teams Detail Maker And Fitter Relationship Specialty Start Date End Date aDphne Edward MD [address] [place] [address] PCP - General Family Medicine 08/13/18 documented as of this encounter
--- OUTSIDE RECORDS SUMMARY | 2025-10-07 09:44 | XMS_ITS | Clinical Summary ---
Author Organization [employer] Address [address] [facility] 7t [place] [address] Care Team Providers Care Hearing Healthcare Practitioner Name Role Phone Daphne Edward MD Primary Care Provide r Allergies Active Allergy Reactions Criticality Noted Date Comments Coconut Flavoring Agent (Non-Screening) 09/22/2024 Medications levothyroxine (Synthroid) 125 MCG tabletIndications :Postoperative hypothyroidism Take 1 tablet (125 mcg) by mouth before breakfast. 30 tablet 2 09/24/20 24 Active ibuprofen 600 MG tablet TAKE 1 [...] MOUTH EVERY DAY 90 tablet 1 03/24/20 25 025 Discontinued amLODIPine (Norvasc) 5 MG tablet TAKE 1 TABLET BY MOUTH EVERY DAY 90 tablet 1 03/29/20 25 025 Discontinued Active Problems Problem Noted Date [...] DEPARTMENT Provider, Generic External Data 09/18/2025 Refill [facility] MED[facility] [address] [place] [address] Daphne Edward MD 09/08/2025 Refill [facility] [address] [place] [address] Daphne Edward MD 08/07/2025 Refill [facility] [address] [place] [address] Sushma Ibanez MD Postoperative hypothyroidism 07/08/2025 Refill [facility] [address] [place] [address] Daphne Edward MD Hypertension, unspecified type from [...] Description 10/21/2025 8:45 AM EST Office Visit [facility] ADULT DENTAL [address] [place] [address] Ashley Martin Health Maintenance Due Date Last Done Comments CT Colonography 1960 FIT DNA/Cologuard 1960 FIT 1960 FOBT 1960 Sigmoidoscopy 1960 Alcohol/Substance Use Screening 1970 Hepatitis A Vaccines (1 of 2 - [...] 2025 , 10/19/2021, 11/28/2020, Additional history exists Depression Screening 09/22/2025 09/22/2024, 09/22/20 24 SDOH Screening 09/22/2025 09/22/2024 Mammogram 10/05/2025 10/05/2024, 09/01, 06/17/2020, Additional history exists Dental Oral Exam 10/21/2025 04/19/2025, , 01/03/2022, Additional history exists Dental Prophylaxis 10/21/2025 04/19/2025, 0 08/19/2024, 01/03/2022, Additional history exists Tobacco Screening 04/19/2026 04/19/2025 Dental X-Ray: Bitewings 04/20/2026 04/19/20 25, 08/19/2024, 01/03/2022, Additional history exists Dental X-Ray: Full Mouth 04/20/2028 04/19/2025, 02/01/2022 Lipid Panel 09/23/2029 09/23/2024, 12/28/2021 Cervical Cancer [...] Procedure Name Priority Date/Time Associated Diagnosis Comments LIVER FIBROSIS, FIBROTEST ACTITEST PANEL Routine 09/21/2025 2:10 PM EDT VITAMIN D 25-OH (D2 AND D3) Routine 09/21/2025 2:10 PM EDT TISSUE TRANSGLUTAMINASE AB, IGA Routine 09/21/2025 2:10 PM EDT HEPATIC FUNCTION PANEL Routine 2:10 PM EDT VITAMIN B12/FOLATE, SERUM PANEL Routine 09/21/2025 2:10 [...] screening mammogram for malignant neoplasm of breast LIPID PANEL, STANDARD Routine 09/23/2024 12:08 PM EDT Essential hypertension Postoperative hypothyroidism HEPATITIS C AB W/REFL TO HCV RNA, QN, PCR Routine 09/23/2024 12:05 PM EDT Essential hypertension Postoperative hypothyroidism ZZZ HISTORICAL HPV MRNA E6/E7 Routine 10/09/2018 10:30 AM EST HM COLONOSCOPY Routine 09/23/2018 from Last 3 Months or Most Recently Relevant to Health Maintenance Results * (ABNORMAL) VITAMIN D 25-OH (D2 AND D3) (09/21/2025 2:10 PM EDT) Vitamin D, 25-OH, D2 <4 ng/mL [facility] Comment:This test was develo ped and its analytical performancecharacteristics have been determined by [employer] [place], [place]. It hasnot been cleared or approved by the U.S. Food and DrugAdministration. This assay has been validated pursuantto the CLIA regulations and is used for clinicalpurposes.THIS TEST WAS PERFORMED AT:[facility] [id number] [place] [id number] VILLANUEVA MD,PHD Vitamin D, 25-OH, D3 23 ng/mL [facility] Comment:This test was develo ped and its analytical performancecharacteristics have been determined by [employer], [place]. It hasnot been cleared or approved by the U.S. Food and DrugAdministration. This assay has been validated pursuantto the CLIA regulations and is used for clinicalpurposes. Vitamin D, 25-OH, Total 23(A) 30 - 100 ng/mL [facility] Comment:Vitamin D, 25-Hydrox y reports concentrations of twocommon forms, 25-OHD2 and 25-OHD3. 25-OHD3 indicatesboth endogenous production and supplementation.25-OHD2 is an indicator of exogenous sources such asdiet or supplementation. Therapy is based onmeasurement of Total 25-OHD, with levels <20 ng/mLindicative of Vitamin D deficiency, while levelsbetween 20 ng/mL and 30 ng/mL suggest insufficiency.Optimal levels are > or = 30 ng/mL.For additional information, please refer tohttp://education.[employer]/faq/OVO381(This link is being provided for informational/educational purposes only.) 09/21/2025 2:10 PM EDT 09/21/2025 2:10 PM EDT Generic External Data Provider LAB BLOOD ORDERAB LES Final Result Performing Organization Address [facility] Co de Phone Number [facility] [address] [place] [phone] * Vitamin B12 (Cobalamin) and Folate Panel, Serum (09/21/2025 2:10 PM EDT) Vitamin B12 386 200 - 900 pg/mL [facility] Comment:NORMAL 200-900 PG/ML INDETERMINATE 160-199 PG/ML DEFICIENT < 160 PG/ML Folate 10.7 > or = 4.0 ng/mL [facility] Comment:Reference Values:> o r = 4.0 ng/mL< 4.0 ng/mL suggests folate deficiency Methotrexate, aminopterin and folinic acid(leucovorin) are chemotherapeutic agents whose molecularstructures are similar to folate; therefore, the Architectfolate assay cannot be used for patients using these drugs. 09/21/2025 2:10 PM EDT 09/21/2025 2:10 PM EDT Generic External Data Provider LAB BLOOD ORDERAB LES Final Result Performing Organization Address [facility] de Phone Number [facility] [address] [place] [phone] * (ABNORMAL) Liver Fibrosis (HCV), FibroTest-ActiTest Panel (09/21/2025 2:10 PM EDT) Liver Fibrosis Score 0.07 [facility] Liver Fibrosis Stage F0 [facility] Liver Fibrosis Interpretation SEE NOTE [facility] Comment:no fibrosisFibro Nica t Score (f) Metavir Score f>=0 and f<=0.21 : F0 (no fibrosis)f>0.21 and f<=0.27 : F0-F1 (no fibrosis)f>0.27 and f<=0.31 : F1 (minimal fibrosis)f>0.31 and f<=0.48 : F1-F2 (minimal fibrosis)f>0.48 and f<=0.58 : F2 (moderate fibrosis)f>0.58 and f<=0.72 : F3 (advanced fibrosis)f>0.72 and f<=0.74 : F3-F4 (advanced fibrosis)f>0.74 and f<=1.00 : F4 (severe fibrosis) Nec Inflam Act Score 0.02 [facility] Nec Inflam Act Grade A0 [facility] Nec Inflam Act Interpretation SEE NOTE [facility] Comment:no activityActiTest Score (a) Metavir Score a>=0 and a<=0.17 : A0 (no activity)a>0.17 and a<=0.29 : A0-A1 (no activity)a>0.29 and a<=0.36 : A1 (minimal activity)a>0.36 and a<=0.52 : A1-A2 (minimal activity)a>0.52 and a<=0.60 : A2 (significant activity)a>0.60 and a<=0.62 : A2-A3 (significant activity)a>0.62 and a<=1.00 : A3 (severe activity) POO-Qmusv-5-Macroglo bulin 202 106 - 279 mg/dL [facility] FIB-Haptoglobin 277(A) 43 - 212 mg/dL [facility] FIB-Apolipoprotein A1 177 101 - 198 mg/dL [facility] FIB-Total Bilirubin 0.2 0.2 - 1.2 mg/dL [facility] FIB-GGT 24 3 - 65 U/L [facility] FIB-ALT 12 6 - 29 U/L [facility] Reference ID [id number] [facility] Footnote SEE NOTE [facility] Comment: The reliability of results is dependent on compliance withthe preanalytical and analytical conditions recommended byBioPredictive. The tests have to be deferred for: acutehemolysis, acute hepatitis, acute inflammation, extrahepatic cholestasis. The advice of a specialist should besought for interpretation in chronic hemolysis and Gilbert'ssyndrome. The test interpretation is not validated in livertransplant patients. Isolated extreme values of one of thecomponents should lead to caution in interpreting theresults. In case of discordance between a biopsy result geovanni test, it is recommended to seek the advice of aspecialist. The causes of these discordances could be due toa flaw of the test or to a flaw in the biopsy: i.e. a liverbiopsy has a 33% variability rate for one fibrosis stage.FibroTest is interpretable for chronic hepatitis B and C,alcoholic and non alcoholic steatosis. ActiTest isinterpretable for chronic hepatitis B and C.The performance characteristics have been determined by[facility]. Ithas not been cleared or approved by the U.S. Food and DrugAdministration. Performance characteristics refer to theanalytical performance of the test.[employer], the associated logo, [employer] and all associated [employer] flores are theregistered trademarks of [employer]. All third partymarks - (R) and (TM) - are the property of their respectiveowners. (C) [id number] [employer]. Allrights reserved.THIS TEST WAS PERFORMED AT:[facility] [id number] [place] [address]NPPDZCODEY RICCI MD,PHD,LINO 09/21/2025 2:10 PM EDT 09/21/2025 2:10 PM EDT us Generic External Data Provider LAB BLOOD ORDERAB LES Final Result [facility] [address] [place] [phone] * Tissue Transglutaminase Antibody, IgA (09/21/2025 2:10 PM EDT) Transglutaminase IgA <1.0 U/mL [facility] Comment:Value Interpretation ----- <15.0 Antibody not detected> or = 15.0 Antibody detectedTHIS TEST WAS PERFORMED AT:[employer] [place] [id number] CUETO MD 09/21/2025 2:10 PM EDT 09/21/2025 2:10 PM EDT Generic External Data Provider LAB BLOOD ORDERAB LES Final Result Performing Organization Address [facility] de Phone Number [facility] [address] [place] [phone] * Hepatic Function Panel (09/21/2025 2:10 PM EDT) Bilirubin, Total 0.3 0.0 - 1.0 mg/dL [facility] Bilirubin, Direct 0.2 0.0 - 0.5 mg/dL [facility] Aspartate Amino Transferase 19 5 - 31 U/L [facility] Alanine Aminotransferase 14 0 - 31 U/L [facility] Total Protein 7.6 6.5 - 8.0 g/dL [facility] Albumin Level 4.3 3.5 - 5.0 g/dL [facility] Alkaline Phosphatase 99 39 - 117 U/L [facility] 09/21/2025 2:10 PM EDT 09/21/2025 2:10 PM EDT Generic External Data Provider LAB BLOOD ORDERAB LES Final Result Performing Organization Address [facility] de Phone Number [facility] [address] [place] [phone] * BI Mammogram Screening Tomosynthesis Bilateral (10/05/2024 3:00 PM EST) Anatomical Region Laterality Modality Breast Bilateral Mammography 10/05/2024 3:00 PM EST Narrative 10/14/2024 12:23 PM EST [facility] [address] [place] [address] Mammography Report Signed Patient: Alejandra Lindquist MR#: [id number] : 1960 Acct:[id number] Age/Sex: 64 / F ADM Date: 10/05/24 Loc: PR[facility] Attending Dr: Daphne Garrido MD Ordering Physician: Daphne Edward MD Results: 1Negative Date of Service: 10/05/24 Follow Up: 1 Year From Orig inal Mammogram Procedure(s): MM tomosynthesis screening BI Accession Number(s): [id number] cc: Daphne Edward MD EXAMINATION: MM SCREENING [...] by: Laura [place] DO 10/14/2024 12:19 PM [facility] Dictated By: Laura [place] DO Signed By: <Electronically signed by Laura [place] DO in OV> 10/14/24 1219 DD/ 1500 TD/TT: 10/05/24 1524 Course Developer: Procedure Note Donotuseinterpreter, Image - 10/14/2024 [facility] [address] [place] [address] [place] [address] Mammography Report Signed Patient: Alejandra Lindquist ZMR#: [id number] : 8Acct:[id number] Age/Sex: 64 / FADM Date: 10/05/24 Loc: HO.MAMMO Attending Dr: Daphne Garrido MD Ordering Physician: Daphne Edward MDResults: 1Negative Date of Service: 10/05/24Follow Up: 1 Year From Orig inal Mammogram Procedure(s): MM tomosynthesis screening BI Accession Number(s): [id number] cc: Daphne Edward MD EXAMINATION: MM SCREENING [...] 10/14/24 1219 DD/ 1500 TD/TT: 10/05/24 1524 Course Developer: us Daphne Garrido MD IMG BI PROCEDURES Fin al Result * Lipid Panel, Standard (09/23/2024 12:08 PM EDT) Triglycerides 104 <150 mg/dL [facility] Comment:Desirable Triglyceri de: less than 150 mg/dLBorderline High Triglyceride 150-199 mg/dLHigh Triglyceride: 200-499 mg/dLVery High Triglyceride: greater than or equal to 5OO mg/dL Cholesterol 149 <200 mg/dL [facility] Comment:Desirable Cholestero l: less than 200 mg/dLBorderline High Cholesterol: 200-239 mg/dLHigh Cholesterol: greater than 239 mg/dL LDL Cholesterol Calculated 81 <100 mg/dL [facility] Comment:Desirable LDL: less than 100 mg/dLNear Optimal/Above Optimal LDL: 110- 129 mg/dLBorderline High LDL: 130-159 mg/dLHigh LDL: 160-189 mg/dLVery High LDL: greater than or equal to 190 mg/dL HDL Cholesterol 48 >40 mg/dL [facility] Comment:Desirable HDL: great er than 40 mg/dL Note: This HDL assay may give artificially low results in patients with liver disease. Blood Venous blood specimen / Unknown 09/23/2024 12:08 PM EDT 09/23/2024 1:24 PM EDT us Daphne Garrido MD LAB BLOOD ORDERABLES Final Result Performing Organization Address [facility] Co de Phone Number [facility] [address] [place] [phone] * Hepatitis C Antibody with Reflex to HCV, RNA, Quantitative, Real-Time PCR (09/23/2024 12:05 PM EDT) Pathologist [facility] Hepatitis C Antibody Nonreactive Nonreactive [facility] Comment:Antibodies to HCV no t detected; does not exclude early acuteHCV infection. Blood Venous blood specimen / Unknown 09/23/2024 12:05 PM EDT 09/23/2024 1:24 PM EDT us Daphne Garrido MD LAB BLOOD ORDERABLES Final Result Performing Organization Address [facility] Co de Phone Number [facility] [address] [place] [phone] * HPV mRNA E6/E7 (10/09/2018 10:30 AM EST) HPV mRNA E6/E7 Not Detected NOT DETECTED [facility] Comment: This test was performed using the APTIMA(R) HPV Assay ([employer] This assay detects E6/E7 viral messenger RNA (mRNA) from 14 high-risk HPV types (16,18,31,33,35,39,45,51, 52,56,58,59,66,68). For additional information please refer to: http://SocialProof.Pansieve/faq/PXQ221z5 (This link is being provided for informational/ educational purposes only.) The analytical performance characteristics of this assay have been determined by [employer] [place], [place]. The modifications have not been cleared or approved by the FDA. This assay has been validated pursuant to the CLIA regulations and is used for clinical purposes. Test Performed by [facility], [employer] [facility], [address] [place] [address] Ranulfo Villanueva M.D., Ph.D., Director of Laboratories , CLIA [id number] Please note: Effective 08/13/2016, HPV testing will be performed using [employer]'s APTIMA test which targets mRNA. Detecting mRNA instead of DNA, as in older methods, offers significant improvements in specificity. 10/09/2018 10:3 0 AM EST Rocío Bob CNM HISTORICAL/NON ORDERABLE LABS Final Result [facility] Anywhere [address] * Colonoscopy (09/23/2018) Historical Provider MD HEALTH MAINTENANCE Final Result from Last 3 Months or Most Recently Relevant to Health Maintenance Insurance #[address] [place] [address] [facility] STANDARD MEDICARE [facility] [place] [address] [place] [address] [place] [address] Care Teams Hearing Healthcare Practitioner Relationship Specialty Start Date End Date Daphne Edward MD [address] [place] [phone] PCP - General Family Medicine 08/13/18
--- OUTSIDE RECORDS SUMMARY | 2025-10-07 09:44 | XMS_ITS | Encounter Summary ---
Author Organization [employer] Address [address] [place] [address] 7t [place] [address] Care Team Providers Care Ordnance Equipment Worker Name Role Phone Daphne Edward MD Primary Care Provide r Encounter Details Date Type Department Care Team (Latest Contact Info) Description 01/03/2022 Abstract [facility] CONVERSIONS Dental, Provider, DDS Social History [...] Description 10/21/2025 8:45 AM EST Office Visit [facility] ADULT DENTAL [address] [place] [address] Ashley Martin documented as of this encounter Visit Diagnoses Not on filedocumented in this encounter Care Teams Ordnance Equipment Worker Relationship Specialty Start Date End Date Daphne Edward MD [address] [place] [address] PCP - General Family Medicine 08/13/18 documented as of this encounter
--- OUTSIDE RECORDS SUMMARY | 2025-10-07 09:44 | XMS_ITS | Encounter Summary ---
Author Organization [facility] Address [address] [place] [address] 7 [place] [address] Care Team Providers Care Surfacing Machine Operator Name Role Phone Daphne Edward MD Primary Care Provide r Encounter Details Date Type Department Care Team (Late st Contact Info) Description 08/21/2023 Orders Only [facility] MEDICINE [address] [place] [address] Provider, [place], Social History Tobacco Use Types [...] Description 10/21/2025 8:45 AM EST Office Visit [facility] ADULT DENTAL [address] [place] [address] Ashley Martin documented as of this encounter Procedures Procedure Name Priority Date/Time Associated Diagnosis Comments HM COLONOSCOPY Routine 09/23/2018 documented in this encounter Results * Hm Colonoscopy (09/23/2018) Historical Provider HEALTH MAINTENANCE Final Result documented in this encounter Visit Diagnoses Not on filedocumented in this encounter Care Teams Surfacing Machine Operator Relationship Specialty Start Date End Date Daphne Edward MD [address] [place] [address] PCP - General Family Medicine 08/13/18 documented as of this encounter
--- OUTSIDE RECORDS SUMMARY | 2025-10-07 09:44 | XMS_ITS | Encounter Summary ---
Author Organization [employer] Address [address] [place] [address] [address] [place] [address] Care Team Providers Care General Worker Name Role Phone Daphne Edward MD Primary Care Provide r Reason for Visit * Reason Comments Med Refill Encounter Details Date Type Department Care Team ([facility] Contact Info) Description 08/20/2023 Refill [facility] MEDICINE [address] [place] [address] Daphne Edward MD [address] [place] [address] Post-surgical hypothyroidism Social History Tobacco Use Types [...] Upcoming Encounters Date Type Department Care Team ([facility] Contact Info) Description 10/21/2025 8:45 AM EST Office Visit [facility] ADULT DENTAL [address] [place] [address] Ashley Martin documented as of this encounter Visit Diagnoses Diagnosis Post-surgical hypothyroidism Postsurgical hypothyroidism documented in this encounter Care Teams General Worker Relationship Specialty Start Date End Date Daphne Edward MD [address] [place] [id number] PCP - General Family Medicine 08/13/18 documented as of this encounter
== END 2025-10-07 09:01 | disposition home or self-care (01) ==
LOC: HO.MAMMO 09:00
PROVIDERS: PCP Internal Medicine; Visit Provider Internal Medicine
DX: Z12.31 Encounter for screening mammogram for malignant neoplasm of breast (principal)
CPT/HCPCS: 77063; 77067

== ENCOUNTER → 2025-10-07 09:15 | Outpatient (BNV) | payer MEDICARE, MEDICAID, SELFPAY | PROVIDERS: PCP Internal Medicine; Visit Provider Internal Medicine | DX: Z12.31 Encounter for screening mammogram for malignant neoplasm of breast (principal) | CPT/HCPCS: 77063; 77067 ==